=== PATIENT | female | born 1940 | race Caucasian/White ===

== ENCOUNTER 2018-03-28 20:25 | Emergency (ER) | payer OTHER ==
[~2018-03-28] VITALS: Ht 160 cm; Wt 74.8 kg
[2018-03-28 20:53] VITALS: Ht 160 cm; Wt 74.8 kg
[2018-03-28 20:54] LABS: microscopic required? NO
[2018-03-28 21:03] LABS: UA SPECIFIC GRAVITY <=1.005 (1.005-1.035); urine erythrocyte NEGATIVE (NEGATIVE)
[2018-03-28 21:05] LABS: BASOPHIL % 1.9 % (0-2); PLATELET COUNT 315 x10^3mcL (130-400)
[2018-03-28 21:07] LABS: RED CELL DISTRIBUTION WIDTH 15.8 % (11.5-14.5)
[2018-03-28 21:12] LABS: CALCIUM 8.3 mg/dL (8.5-10.1); CARBON DIOXIDE 25.4 mmol/L (21-32); CHLORIDE SERUM 104 mmol/L (98-107); CREATININE SERUM 2.5 mg/dL (0.6-1.0); GLUCOSE SERUM 95 mg/dL (74-106); POTASSIUM SERUM 4.8 mmol/L (3.5-5.1); SODIUM SERUM 136 mmol/L (136-145)
[2018-03-28 21:16] LABS: ALKALINE PHOSPHATASE 151 U/L (46-116); ALT/SGPT 14 U/L (14-59); AST/SGOT 11 U/L (15-37); BILIRUBIN TOTAL 0.2 mg/dL (0.20-1.00); LIPASE 348 IU/L (73-393); TOTAL PROTEIN, SERUM 6.2 g/dL (6.4-8.2)
[2018-03-29 01:53] VITALS: BP 138/64
== END 2018-03-29 01:54 | disposition home or self-care (01) ==
LOC: ED 20:25
PROVIDERS: Emergency Medicine
DX: N28.9 Disorder of kidney and ureter, unspecified (principal); R25.2 Cramp and spasm; F03.90 Unspecified dementia, unspecified severity, without behavioral disturbance, psychotic disturbance, mood disturbance, and anxiety
CPT/HCPCS: 36415; 83880; Q0092

== ENCOUNTER → 2018-07-26 | Outpatient (CLI) | payer OTHER ==
[2018-07-26 15:38] LABS: BASOPHIL % 0.1 % (0-2); PLATELET COUNT 297 x10^3mcL (130-400); RED CELL DISTRIBUTION WIDTH 15.7 % (11.5-14.5)
[2018-07-26 15:42] LABS: ALBUMIN 3.5 g/dL (3.4-5.0); ALKALINE PHOSPHATASE 133 U/L (46-116); ALT/SGPT 15 U/L (14-59); AST/SGOT 14 U/L (15-37); BILIRUBIN TOTAL 0.2 mg/dL (0.20-1.00); CARBON DIOXIDE 24.8 mmol/L (21-32); CHLORIDE SERUM 110 mmol/L (98-107); CREATININE SERUM 2.1 mg/dL (0.6-1.0); GLUCOSE SERUM 105 mg/dL (74-106); MAGNESIUM 2.1 mg/dL (1.8-2.4); PHOSPHOROUS 3.9 mg/dL (2.5-4.9); POTASSIUM SERUM 4.4 mmol/L (3.5-5.1); SODIUM SERUM 143 mmol/L (136-145)
== END | disposition home or self-care (01) ==
LOC: LB 14:54
PROVIDERS: Internal Medicine Nephrology
DX: I12.9 Hypertensive chronic kidney disease with stage 1 through stage 4 chronic kidney disease, or unspecified chronic kidney disease (principal); E66.9 Obesity, unspecified

== ENCOUNTER → 2018-11-15 | Outpatient (CLI) | payer OTHER ==
[2018-11-15 17:04] LABS: UA SPECIFIC GRAVITY 1.025 (1.005-1.035); microscopic required? YES; urine erythrocyte NEGATIVE (NEGATIVE)
[2018-11-15 17:10] LABS: ALBUMIN 3.5 g/dL (3.4-5.0); ALKALINE PHOSPHATASE 137 U/L (46-116); ALT/SGPT 13 U/L (14-59); AST/SGOT 15 U/L (15-37); BILIRUBIN TOTAL 0.28 mg/dL (0.20-1.00); CALCIUM 8.4 mg/dL (8.5-10.1); CARBON DIOXIDE 22.3 mmol/L (21-32); CHLORIDE SERUM 105 mmol/L (98-107); CREATININE SERUM 2.5 mg/dL (0.6-1.0); GLUCOSE SERUM 88 mg/dL (74-106); POTASSIUM SERUM 4.1 mmol/L (3.5-5.1); SODIUM SERUM 137 mmol/L (136-145); TOTAL PROTEIN, SERUM 7.3 g/dL (6.4-8.2)
[2018-11-15 17:16] LABS: BASOPHIL % 0.2 % (0-2); PLATELET COUNT 290 x10^3mcL (130-400); RED CELL DISTRIBUTION WIDTH 13.6 % (11.5-14.5)
== END | disposition home or self-care (01) ==
LOC: LB 16:14
DX: N18.4 Chronic kidney disease, stage 4 (severe) (principal); I10 Essential (primary) hypertension; Z98.84 Bariatric surgery status

== ENCOUNTER 2018-12-12 14:09 | Emergency (ER) | payer OTHER ==
[~2018-12-12] VITALS: Ht 147.3 cm; Wt 79.4 kg
[2018-12-12 14:13] VITALS: Ht 147.3 cm; Wt 79.4 kg
[2018-12-12 15:19] LABS: BASOPHIL % 1.6 % (0-2); PLATELET COUNT 293 x10^3mcL (130-400); RED CELL DISTRIBUTION WIDTH 14.1 % (11.5-14.5)
[2018-12-12 15:50] LABS: CALCIUM 8.8 mg/dL (8.5-10.1); CARBON DIOXIDE 27.1 mmol/L (21-32); CHLORIDE SERUM 102 mmol/L (98-107); CREATININE SERUM 2.5 mg/dL (0.6-1.0); GLUCOSE SERUM 106 mg/dL (74-106); POTASSIUM SERUM 4.7 mmol/L (3.5-5.1); SODIUM SERUM 140 mmol/L (136-145)
[2018-12-12 15:55] LABS: ALBUMIN 3.6 g/dL (3.4-5.0); ALKALINE PHOSPHATASE 137 U/L (46-116); ALT/SGPT 13 U/L (14-59); AST/SGOT 12 U/L (15-37); BILIRUBIN TOTAL 0.33 mg/dL (0.20-1.00); TOTAL PROTEIN, SERUM 7.3 g/dL (6.4-8.2)
[2018-12-12 16:01] LABS: microscopic required? NO
[2018-12-12 16:19] LABS: urine erythrocyte NEGATIVE (NEGATIVE)
[2018-12-12 19:14] VITALS: BP 154/71
== END 2018-12-12 19:14 | disposition home or self-care (01) ==
LOC: ED 14:09
PROVIDERS: Emergency Medicine
DX: R53.1 Weakness (principal); E86.0 Dehydration; R51 Headache; Z88.0 Allergy status to penicillin
CPT/HCPCS: 87804; J2765; J7030; Q0092

== ENCOUNTER 2019-01-26 09:17 | Inpatient (IN) | payer OTHER ==
[~2019-01-26] VITALS: Ht 157.5 cm; Wt 71.2 kg
[2019-01-26 10:16] LABS: BASOPHIL % 1.3 % (0-2); PLATELET COUNT 281 x10^3mcL (130-400)
[2019-01-26 10:21] LABS: RED CELL DISTRIBUTION WIDTH 16.4 % (11.5-14.5)
[2019-01-26 10:37] LABS: CARBON DIOXIDE 24.6 mmol/L (21-32); CHLORIDE SERUM 102 mmol/L (98-107); CREATININE SERUM 2.4 mg/dL (0.6-1.0); GLUCOSE SERUM 123 mg/dL (74-106); POTASSIUM SERUM 4.5 mmol/L (3.5-5.1); SODIUM SERUM 137 mmol/L (136-145)
[2019-01-26 10:42] LABS: ALBUMIN 3.9 g/dL (3.4-5.0); ALKALINE PHOSPHATASE 155 U/L (46-116); ALT/SGPT 16 U/L (14-59); AST/SGOT 12 U/L (15-37); BILIRUBIN TOTAL 0.46 mg/dL (0.20-1.00); TOTAL PROTEIN, SERUM 7.3 g/dL (6.4-8.2)
[2019-01-26] MEDS ORDERED: CITALOPRAM HYDR20 M1 PO (11:26)
[2019-01-26] MEDS ORDERED: NOR10 PO (11:26)
[2019-01-26] MEDS ORDERED: LANSOPRAZOLE30 M2 PO (11:27)
[2019-01-26] MEDS ORDERED: FLUOCINOLONE ACETONIDE 0.01% TOP (11:27)
[2019-01-26] MEDS ORDERED: HYDRALAZINE HCL25 MG PO (11:27)
[2019-01-26] MEDS ORDERED: FERROUS SULFAT325 M2 PO (11:27)
[2019-01-26] MEDS ORDERED: ZESTRIL20 MG PO (11:28)
[2019-01-26] MEDS ORDERED: METOLAZONE5 M1 PO (11:29)
[2019-01-26] MEDS ORDERED: SEROQUEL XR50 MG PO (11:30)
[2019-01-26] MEDS ORDERED: MIRALAX17 GM PO (11:30)
[2019-01-26 12:22] LABS: MAGNESIUM 2.8 mg/dL (1.8-2.4); PHOSPHOROUS 4.5 mg/dL (2.5-4.9)
[2019-01-26 12:57] VITALS: BP 174/67
[2019-01-26 13:24] LABS: microscopic required? NO
[2019-01-26 13:35] LABS: AMPHETAMINE QUAL UR NONE DETECTED (See below)
[2019-01-26 13:50] LABS: urine erythrocyte NEGATIVE (NEGATIVE)
[2019-01-26] MEDS ORDERED: ATIVAN1 MG PO (13:52)
[2019-01-26] MEDS ORDERED: IMITREX50 MG PO (13:53)
[2019-01-26 18:06] VITALS: BP 123/57
[2019-01-26 19:43] VITALS: BP 106/47
[2019-01-27 05:56] VITALS: BP 133/53
[2019-01-27 06:33] LABS: CALCIUM 7.9 mg/dL (8.5-10.1); CARBON DIOXIDE 23.2 mmol/L (21-32); CHLORIDE SERUM 105 mmol/L (98-107); GLUCOSE SERUM 112 mg/dL (74-106); MAGNESIUM 2.6 mg/dL (1.8-2.4); PHOSPHOROUS 5.9 mg/dL (2.5-4.9); POTASSIUM SERUM 4.9 mmol/L (3.5-5.1); SODIUM SERUM 138 mmol/L (136-145)
[2019-01-27 06:45] LABS: BASOPHIL % 0.1 % (0-2); PLATELET COUNT 219 x10^3mcL (130-400)
[2019-01-27 07:57] LABS: RED CELL DISTRIBUTION WIDTH 16.7 % (11.5-14.5)
[2019-01-27 08:36] VITALS: BP 136/46
[2019-01-27 08:50] VITALS: BP 130/87
[2019-01-27 14:07] VITALS: BP 112/40
[2019-01-27 15:01] LABS: microscopic required? NO
[2019-01-27 15:19] LABS: urine erythrocyte NEGATIVE (NEGATIVE)
[2019-01-27 17:18] VITALS: Ht 157.5 cm; Wt 71.2 kg
[2019-01-27 17:51] VITALS: BP 128/52
[2019-01-27 20:03] VITALS: BP 112/51
[2019-01-28 05:55] VITALS: BP 125/50
[2019-01-28 06:44] LABS: BASOPHIL % 0.7 % (0-2); PLATELET COUNT 215 x10^3mcL (130-400)
[2019-01-28 06:55] LABS: CALCIUM 7.8 mg/dL (8.5-10.1); CARBON DIOXIDE 22.5 mmol/L (21-32); CHLORIDE SERUM 107 mmol/L (98-107); CREATININE SERUM 2.6 mg/dL (0.6-1.0); GLUCOSE SERUM 94 mg/dL (74-106); MAGNESIUM 2.8 mg/dL (1.8-2.4); PHOSPHOROUS 4.8 mg/dL (2.5-4.9); POTASSIUM SERUM 5.1 mmol/L (3.5-5.1); SODIUM SERUM 138 mmol/L (136-145)
[2019-01-28 07:06] LABS: RED CELL DISTRIBUTION WIDTH 16.6 % (11.5-14.5)
[2019-01-28 09:43] VITALS: BP 138/63
[2019-01-28 21:09] VITALS: BP 135/61
[2019-01-29 06:28] VITALS: BP 137/49
[2019-01-29 06:40] LABS: BASOPHIL % 1.2 % (0-2); PLATELET COUNT 208 x10^3mcL (130-400)
[2019-01-29 06:56] LABS: RED CELL DISTRIBUTION WIDTH 16.6 % (11.5-14.5)
[2019-01-29 07:04] LABS: CALCIUM 7.9 mg/dL (8.5-10.1); CARBON DIOXIDE 24.3 mmol/L (21-32); CHLORIDE SERUM 109 mmol/L (98-107); CREATININE SERUM 2.7 mg/dL (0.6-1.0); GLUCOSE SERUM 88 mg/dL (74-106); MAGNESIUM 2.6 mg/dL (1.8-2.4); PHOSPHOROUS 4.9 mg/dL (2.5-4.9); SODIUM SERUM 141 mmol/L (136-145)
[2019-01-29 07:10] LABS: POTASSIUM SERUM 5.6 mmol/L (3.5-5.1)
[2019-01-29 08:00] VITALS: BP 137/51
[2019-01-29 17:00] VITALS: BP 130/53
[2019-01-29 21:06] VITALS: BP 134/64
[2019-01-30 05:15] VITALS: BP 148/66
[2019-01-30 06:41] LABS: BASOPHIL % 1.2 % (0-2); PLATELET COUNT 245 x10^3mcL (130-400)
[2019-01-30 07:08] LABS: CALCIUM 7.9 mg/dL (8.5-10.1); CARBON DIOXIDE 21.5 mmol/L (21-32); CHLORIDE SERUM 105 mmol/L (98-107); CREATININE SERUM 2.5 mg/dL (0.6-1.0); GLUCOSE SERUM 162 mg/dL (74-106); POTASSIUM SERUM 4.5 mmol/L (3.5-5.1); SODIUM SERUM 137 mmol/L (136-145)
[2019-01-30 07:26] LABS: RED CELL DISTRIBUTION WIDTH 16.5 % (11.5-14.5)
[2019-01-30 09:57] VITALS: BP 144/53
[2019-01-30 17:20] VITALS: BP 131/69
[2019-01-30 21:02] VITALS: BP 139/59
[2019-01-31 06:28] VITALS: BP 124/48
[2019-01-31 10:04] VITALS: BP 128/54
[2019-01-31] MEDS ORDERED: TAMSULOSIN HYD0.4 M1 PO (10:10)
== END 2019-01-31 19:29 | DRG 205 ==
LOC: ED 09:17 → MU 11:39 → DU 11:39 → MU 01-28 10:00
PROVIDERS: Emergency Medicine; Family Medicine; ADMIT Internal Medicine
DX: M94.0 Chondrocostal junction syndrome [Tietze] (principal); N17.0 Acute kidney failure with tubular necrosis; N18.4 Chronic kidney disease, stage 4 (severe); I12.9 Hypertensive chronic kidney disease with stage 1 through stage 4 chronic kidney disease, or unspecified chronic kidney disease; R33.9 Retention of urine, unspecified; R73.03 Prediabetes; E83.41 Hypermagnesemia; F32.9 Major depressive disorder, single episode, unspecified; F02.80 Dementia in other diseases classified elsewhere, unspecified severity, without behavioral disturbance, psychotic disturbance, mood disturbance, and anxiety; Z87.891 Personal history of nicotine dependence; Z22.322 Carrier or suspected carrier of Methicillin resistant Staphylococcus aureus
CPT/HCPCS: 83880; 97110-GP; 97116-GP; 97530-GP; J2060; J7030; Q0092

== ENCOUNTER 2019-02-08 17:46 | Inpatient (IN) | payer OTHER ==
[~2019-02-08] VITALS: Ht 157.5 cm; Wt 77.3 kg
[~2019-02-08 17:46] MED LIST: ATIVAN1 MG PO; CITALOPRAM HYDR20 M1 PO; FERROUS SULFAT325 M2 PO; FLUOCINOLONE ACETONIDE 0.01% TOP; HYDRALAZINE HCL25 MG PO; IMITREX50 MG PO; LANSOPRAZOLE30 M2 PO; METOLAZONE5 M1 PO; MIRALAX17 GM PO; NOR10 PO; SEROQUEL XR50 MG PO; TAMSULOSIN HYD0.4 M1 PO; ZESTRIL20 MG PO
--- NOTE | 2019-02-08 18:10 | NUR ---
ED PHYSICIAN AT BEDSIDE FOR PATIENT EVALUATION. MEDICAL SCREENING EXAMINATION COMPLETED BY ED PHYSICIAN DR. SOFIA.
[2019-02-08 18:42] LABS: UA SPECIFIC GRAVITY 1.015 (1.005-1.035); microscopic required? YES
[2019-02-08 18:43] LABS: urine erythrocyte 1+ (NEGATIVE)
[2019-02-08 19:08] LABS: PLATELET COUNT 288 x10^3mcL (130-400)
--- NOTE | 2019-02-08 19:09 | NUR ---
REPORT HAND-OFF TO NIGHT RN KATIA.
[2019-02-08 19:13] LABS: RED CELL DISTRIBUTION WIDTH 16.6 % (11.5-14.5)
--- NOTE | 2019-02-08 19:15 | NUR ---
PT TAKEN TO CT VIA WHEELCHAIR
--- NOTE | 2019-02-08 19:16 | NUR ---
SUBHASH RECEIVED FROM BELKIS GARCIA
--- NOTE | 2019-02-08 19:30 | NUR ---
LAB CALLED TO UPDATE THAT THEY HAVE TO RERUN HER BLOOD AND IT WILL TAKE ANOTHER 30 MIN TO 1 HOUR TO GET THE RESULTS
[2019-02-08 19:41] LABS: CALCIUM 8.1 mg/dL (8.5-10.1); CHLORIDE SERUM 103 mmol/L (98-107); CREATININE SERUM 2.8 mg/dL (0.6-1.0); GLUCOSE SERUM 89 mg/dL (74-106); POTASSIUM SERUM 4.9 mmol/L (3.5-5.1); SODIUM SERUM 139 mmol/L (136-145)
--- NOTE | 2019-02-08 19:41 | NUR ---
PT RETURNED FROM CT
--- NOTE | 2019-02-08 19:41 | NUR ---
MADE AWARE PT IN PAIN. NO NEW ORDERS AT THIS TIME.
[2019-02-08 19:45] LABS: ALBUMIN 3.6 g/dL (3.4-5.0); ALKALINE PHOSPHATASE 174 U/L (46-116); ALT/SGPT 18 U/L (14-59); AST/SGOT 16 U/L (15-37); BILIRUBIN TOTAL 0.3 mg/dL (0.20-1.00); LIPASE 301 IU/L (73-393); TOTAL PROTEIN, SERUM 7.4 g/dL (6.4-8.2)
[2019-02-08 19:51] LABS: BAND NEUTROPHIL 3 % (0-10); BASOPHIL 0 % (0-2); MONOCYTE 4 % (0-7); SEGMENTED NEUTROPHILS 88 % (37-75)
[2019-02-08 19:53] LABS: PLATELET MORPHOLOGY PLATELETS NORMAL; rbc morphology (normal/abnorm) NORMAL (NORMAL)
--- NOTE | 2019-02-08 20:05 | NUR ---
INTERNAL MEDICINE MDS AT BEDSIDE FOR EXAM
[2019-02-08 20:40] LABS: MAGNESIUM 2.6 mg/dL (1.8-2.4); PHOSPHOROUS 4.5 mg/dL (2.5-4.9)
[2019-02-08 20:45] LABS: CHOLESTEROL/HDL RATIO 2.7
[2019-02-08 20:46] LABS: T3 TOTAL 0.96 ng/mL
[2019-02-08 20:48] LABS: FREE T4 0.85 ng/dL (0.76-1.46); FREE THYROXINE INDEX 1.9 ug/dL (1.4-4.5); T4(THYROXINE) 6.2 ug/dL (4.7-13.3)
--- NOTE | 2019-02-08 20:55 | NUR ---
REPORT GIVEN TO SHERRI GARCIA
[2019-02-08 21:37] VITALS: BP 139/59
--- NOTE | 2019-02-08 21:41 | NUR ---
RECEIVED PT FROM ED VIA MACARIO. ORIENTED PT TO ROOM AND SURROUNDINGS. IV NOTED TO LAC PATENT AND INTACT. TELE 8 PLACED ON PT READING NSR. INSTRUCTED PT ON THE USE OF CALL LIGHT FOR ASSISTANCE. ENDORSED PT TO PRIMARY NURSE SHERRI
--- NOTE | 2019-02-09 00:38 | NUR ---
PT RECEIVED MORPHINE FOR GENERALIZED PAIN 06/25.
--- NOTE | 2019-02-09 01:14 | NUR ---
MORPHINE PULLED ON INCORRECT PT AT [facility]. MORHPHINE WASTED WITH ALICIA GIBBS. MORPHINE PULLED FOR CORRECT PATIENT.
[2019-02-09 06:17] VITALS: BP 142/59
--- NOTE | 2019-02-09 06:40 | NUR ---
PT SLEPT IN INTERVALS THROUGHOUT THE NIGHT. AGITATED AND ANXIOUS AT TIMES. DENIES CHEST PAIN OR SHORTNESS OF BREATH. WILL ENDORSE TO DAY SHIFT RN.
[2019-02-09 07:05] LABS: PLATELET COUNT 285 x10^3mcL (130-400)
--- NOTE | 2019-02-09 07:10 | NUR ---
RECEIVED REPORT FROM ALMITA GARCIA. PT SITTING AT EDGE OF BED C/O NAUSEA. IV TO LAC IS PATENT AND INFUSING NS @ 50 ML/HR. NO REDNESS OR PAIN. TELE # [address] PT DENIES CHEST PAIN. PT ON ROOM AIR. NO C/O SOB AND NO DISTRESS NOTED. ALL QUESTIONS AND CONCERNS ADDRESSED.
[2019-02-09 07:59] LABS: CALCIUM 8.6 mg/dL (8.5-10.1); CARBON DIOXIDE 18.2 mmol/L (21-32); CHLORIDE SERUM 101 mmol/L (98-107); CREATININE SERUM 2.9 mg/dL (0.6-1.0); GLUCOSE SERUM 124 mg/dL (74-106); POTASSIUM SERUM 4.8 mmol/L (3.5-5.1); SODIUM SERUM 136 mmol/L (136-145)
[2019-02-09 09:54] VITALS: BP 142/61
[2019-02-09 12:55] VITALS: BP 157/68
[2019-02-09 14:58] LABS: ATYPICAL LYMPH 1 %; BAND NEUTROPHIL 3 % (0-10); BASOPHIL 0 % (0-2); SEGMENTED NEUTROPHILS 91 % (37-75)
[2019-02-09 14:59] LABS: PLATELET MORPHOLOGY PLATELETS NORMAL; rbc morphology (normal/abnorm) ABNORMAL (NORMAL)
--- NOTE | 2019-02-09 15:15 | NUR ---
IN TO SEE PATIENT AND ASSESS NEEDS. PT ASLEEP. NO NEEDS IDENTIFIED.
[2019-02-09 17:12] VITALS: BP 145/70
--- NOTE | 2019-02-09 19:50 | NUR ---
REPORT GIVEN TO FELISA GARCIA. PT RESTING COMFORTABLY IN BED TALKING ON THE PHONE. ALL NEEDS MET. ALL QUESTIONS AND CONCERNS ADDRESSED. ALL CARES ENDORSED.
--- NOTE | 2019-02-09 20:03 | NUR ---
RECEIVED PATIENT IN BED AWAKE, ALERT WITH NO SIGN OF ACUTE DISTRESS, BREATHING EASY AND NONLABOR SATTING AT 98% RA. TELE#8 NSR ON MONITOR, DENIES CHESTPAIN. BREATHING EASYA ND NONLABOR SATTING AT 95% RA. IV TO RAC INTACT AND INFUSING WELL. WILL CONTINUE TO MONITOR.
[2019-02-09 20:44] VITALS: BP 138/64
--- NOTE | 2019-02-10 02:10 | NUR ---
APPEARS SLEEPING THIS TIME , BREATHING EASY AND NONLABOR. WILL CONTINUE TO MONITOR.
--- NOTE | 2019-02-10 02:39 | NUR ---
DR ORTIZ MADE AWARE OF BLOOD CULTURE RESULT. GRAM NEGATIVE BACILLI.
--- NOTE | 2019-02-10 05:09 | NUR ---
SLEPT FAIRLY, CHECKED AT INTERVALS FOR EEDS AND SAFDETY. ALL NEEDS ATTENDED.
[2019-02-10 05:58] VITALS: BP 148/58
[2019-02-10 06:12] LABS: BASOPHIL % 0.2 % (0-2); PLATELET COUNT 217 x10^3mcL (130-400)
[2019-02-10 06:13] LABS: RED CELL DISTRIBUTION WIDTH 16.1 % (11.5-14.5)
[2019-02-10 06:46] LABS: CALCIUM 7.9 mg/dL (8.5-10.1); CARBON DIOXIDE 22.5 mmol/L (21-32); CHLORIDE SERUM 104 mmol/L (98-107); GLUCOSE SERUM 105 mg/dL (74-106); MAGNESIUM 2.5 mg/dL (1.8-2.4); PHOSPHOROUS 4.9 mg/dL (2.5-4.9); POTASSIUM SERUM 5.3 mmol/L (3.5-5.1); SODIUM SERUM 136 mmol/L (136-145)
--- NOTE | 2019-02-10 07:10 | NUR ---
RECEIVED BEDSIDE REPORT FROM EVALUATION ANALYST NURSE AT THIS TIME. PATIENT RESTING COMFORTABLY IN BED. NO APPARENT DISTRESS OR DISCOMFORT NOTED. BREATHING EVEN AND UNLABORED. NO RESPIRATORY DISTRESS NOTED. NO INDICATION OF CHEST PAIN AT THIS TIME. IV PATENT AND INTACT. ALL QUESTIONS AND CONCERNS ADDRESSED. ALL NEEDS ATTENDED TO. WILL CONTINUE TO MONITOR
--- NOTE | 2019-02-10 09:17 | NUR ---
MORNING MEDICATIONS ADMINISTERED. PATIENT TOLERATED WELL. NO ADVERSE EFFECTS NOTED. ALL NEEDS ATTENDED TO
[2019-02-10 09:45] VITALS: BP 100/55
--- NOTE | 2019-02-10 10:01 | NUR ---
REPORTED TO DR GIRARD PATIENT POTASSIUM 5.3 AND MAG 2.5. WILL PROCEED ORDERED. WILL CONTINUE TO MONITOR
[2019-02-10 12:32] VITALS: BP 131/55
--- NOTE | 2019-02-10 13:00 | NUR ---
PATIENT SITTING UP IN BED EATING LUNCH AT THIS TIME. PATIENT TOLERATING DIET WELL. NO APPARENT DISTRESS NOTED. ALL NEEDS ATTENDED TO. WILL CONTINUE TO MONITOR
--- NOTE | 2019-02-10 14:02 | NUR ---
PATIENT C/O NECK PAIN AND GENERALIZED BODY PAIN AT THIS TIME. PATIENT MEDICATED WITH PRN MORPHINE IVP. PATIENT TOLERATED WELL. NO ADVERSE EFFECTS NOTED. ALL NEEDS ATTENDED TO. WILL CONTINUE TO MONITOR
--- NOTE | 2019-02-10 16:11 | NUR ---
PATIENT C/O RIGHT FOREARM PAIN AT IV SITE. STATES BURNING WHEN INFUSING. IV TO RFA REMOVED WITH CATH INTACT. PATIENT REFUSING NEW ACCESS AT THIS TIME. WILL CONTINUE TO MONITOR PATIENT.
--- NOTE | 2019-02-10 16:29 | NUR ---
PATIENT C/O PRESSURE LIKE PAIN TO "BLADDER". MEDICATED WITH NORCO PO (SEE eMAR). ALL NEEDS ATTENDED TO. SAFETY PRECAUTIONS MAINTAINED. PRIMARY NURSE AWARE.
--- NOTE | 2019-02-10 18:20 | NUR ---
UNABLE TO OBTAIN IV ACCESS ON PATIENT. RESOURCE NURSE MARY ANN ATTEMPT X4. RESOURCE NURSE KARLENE ATTEMPT X1. WILL ENDORSE TO LAUNDRETTE OWNER NURSE.
[2019-02-10 18:24] VITALS: BP 119/52
--- NOTE | 2019-02-10 18:47 | NUR ---
PATIENT RESTING COMFORABLY IN BED AT THIS TIME. NO APPARENT DISTRESS OR DISCOMFORT NOTED. NO IV ACCESS AT THIS TIME DUE TO MULTIPLE ATTEMPTS AND NO SUCCESS. ALL QUESTIONS AND CONCERNS ADDRESSED. SAFETY PRECAUTIONS MAINTAINED. ALL NEEDS ATTENDED TO. WILL ENDORSE ALL CARE TO DIRECTOR OF PURCHASING NURSE
--- NOTE | 2019-02-10 19:05 | NUR ---
REPORT RECIEVED FROM DAY SHIFT RN. PATIENT WAS SEEN AND IS RESTING COMFORTABLY IN BED. A/OX2 TO PERSON AND PLACE. BREATHING EVEN ON ROOM AIR. NO SOB OR RESP DISTRESS NOTED. NO C/O PAIN. DENIES CHEST PAIN. NO IV ACCESS. DAY SHIFT RN REPORTED THEY ATTEMPTED 5 TIMES WITHOUT SUCCESS BEFORE SHIFT EXCHANGE. DR ROUSE AWARE AND SAID TO GIVE PATIENT A BREAK, AND IF PATIENT'S AWAKE LATER TO TRY AGAIN. IF NOT WILL ATTEMPT IN THE MORNING. HAS URINARY URGENCY. ASSISTED PATIENT TO THE BATHROOM AND BACK TO BED. DENIES PAIN ON URINATION. COMFORT AND SAFETY MEASURES MAINTAINED. BED IS LOCKED AND IN THE LOWEST POSITION. SIDE RAILS UP X2. INSTRUCTED PATIENT TO USE THE CALL LIGHT FOR ASSISTANCE. CALL LIGHT WITHIN REACH. WILL CONTINUE TO MONITOR.
[2019-02-10 21:42] VITALS: BP 134/51
--- NOTE | 2019-02-11 00:11 | NUR ---
PATIENT IN THE RESTROOM. ASSISTED PATIENT BACK TO BED. PATIENT SITTING ON SIDE OF THE BED. GAVE PATIENT PUDDING AND JELLO. NO DISTRESS NOTED. BREATHING EVEN. SAFETY MEASURES MAINTAINED. CALL LIGHT IS WITHIN REACH. WILL CONTINUE TO MONITOR.
--- NOTE | 2019-02-11 00:34 | NUR ---
PT A/O X2, PT IS CONFUSED AND FORGETFUL. ASSISTED PT TO BATHROOM MULTIPLE TIMES WITHOUT INCIDENT. REINFORCED NEED TO USE CALL LIGHT FOR HELP WHEN AMBULATING, PT VERBALIZES UNDERSTANDING BUT FAILS TO USE THE CALL LIGHT. PT REPETITIVELY STATES, "I FEEL LIKE I HAVE A BLADDER INFECTION, I KEEP HAVING TO GO TO THE BATHROOM." EDUCATED PT MULTIPLE TIMES OF HER DX OF UTI WELL S/S, PT STATES, "OH, I DON'T REMEMBER YOU TELLING ME THAT, SO I GUESS I DO HAVE A BLADDER INFECTION." SNACKS GIVEN PER PT'S REQUEST. NO ACUTE DISTRESS NOTED. CALL LIGHT WITHIN REACH. WILL CONT TO MONITOR.
--- NOTE | 2019-02-11 00:44 | NUR ---
ASSISTED PATIENT TO THE BATHROOM AND BACK TO BED. PATIENT AMDE COMFORTABLE IN BED. NO DISTRESS NOTED. BREATHING EVEN. C/O 04/24 GENERALIZED BODY PAIN. PRN NORCO WAS ADMINISTERED PRESCRIBED. WILL CONTINUE TO MONITOR AND REASSESS PAIN LEVEL. CALL LIGHT IS WITHIN REACH.
--- NOTE | 2019-02-11 01:41 | NUR ---
PATIENT ASSISTED TO THE RESTROOM AND BACK TO BED. MADE COMFORTABLE IN BED. C/O OF RESTLESSNESS. PRN ATIVAN PO WAS ADMINISTERED PRESCRIBED. EDUCATED PATIENT THAT DROWSINESS MAY OCCUR. WILL CONTINUE TO MONITOR PATIENT. CALL LIGHT IS WITHIN REACH.
--- NOTE | 2019-02-11 03:36 | NUR ---
PATIENT IS RESTING IN BED COMFORTABLY WITH EYES CLOSED. NO DISTRESS NOTED. BREATHING EVEN. NO IV ACCESS. NO S/S OF PAIN. CALL LIGHT IS WITHIN REACH. WILL CONTINUE TO MONITOR. SAFETY PRECAUTIONS IN PLACE.
[2019-02-11 05:29] VITALS: BP 134/49
[2019-02-11 06:00] LABS: BASOPHIL % 0.3 % (0-2); PLATELET COUNT 218 x10^3mcL (130-400)
[2019-02-11 06:17] LABS: CALCIUM 7.7 mg/dL (8.5-10.1); CARBON DIOXIDE 22.6 mmol/L (21-32); CHLORIDE SERUM 103 mmol/L (98-107); CREATININE SERUM 2.8 mg/dL (0.6-1.0); GLUCOSE SERUM 95 mg/dL (74-106); MAGNESIUM 2.4 mg/dL (1.8-2.4); PHOSPHOROUS 4.6 mg/dL (2.5-4.9); POTASSIUM SERUM 4.6 mmol/L (3.5-5.1); SODIUM SERUM 135 mmol/L (136-145)
--- NOTE | 2019-02-11 06:22 | NUR ---
PATIENT SLEPT IN INTERVALS THROUGHOUT THE NIGHT. NO ACUTE/SIGNIFICANT CHANGES NOTED. BREATHING EVEN ON ROOM AIR. NO DISTRESS NOTED. FREQUENTLY GETS UP/CALLS TO USE TO THE RESTROOM. HAS URINARY URGENCY. PATIENT IS ABLE TO AMBULATE TO THE RESTROOM WITH OUT ASSIST, BUT SOMETIMES CALLS FOR ASSISTANCE. C/O PAIN X1. PRN NORCO ADMINISTERED WITH GOOD RELIEF. NO IV ACCESS AT THIS TIME. ALL NEEDS AND CONCERNS ADDRESSED. ALL SAFETY MEASURES MAINTAINED. WILL ENDORSE CARE TO DAY SHIFT RN.
--- NOTE | 2019-02-11 07:15 | NUR ---
RECEIVED PT FROM LAZARO RN. PT FOUND RESTING IN BED WITH BOTH EYES CLOSED. NO S/S OF ACUTE DISTRESS. NO COMPLAINT OF PAIN. NO SOB ON ROOM AIR. RR EVEN/UNLABORED. NO CHEST PAIN. BED IN LOW POSITION. CALL LIGHT WITHIN REACH. FALL PREC IN PLACE. WILL CONT. TO MONITOR.
[2019-02-11 09:14] VITALS: BP 103/44
[2019-02-11 10:56] VITALS: BP 113/41
--- NOTE | 2019-02-11 12:08 | NUR ---
ASSISTED PT TO BSC, TOLERATED ACTIVITY WELL. NO COMPLAINT OF PAIN. NO SOB ON ROOM AIR. NO N/V. NO SOTO. NO DIZZINESS. AA/OX4. FOLLOWS COMPLEX COMMANDS, RESPONDS TO VERBAL STIMULI. FACE SYMMETRICAL. SPEECH CLEAR. COMPLAINT OF URINARY FREQUENCY/URGENCY. DR. GRACE AWARE. NEW MEDICATION ACKNOWLEDGED AND GIVEN. FALL PREC IN PLACE. INSTRUCTED TO USE CALL LIGHT TO CALL FOR ASSISTANCE BEFORE AMBULATING. VERBALIZED UNDERSTANDING. BED IN LOW POSITION. CALL LIGHT WITHIN REACH. WILL CONT. TO MONITOR.
[2019-02-11 13:37] VITALS: BP 101/56; BP 113/41
--- NOTE | 2019-02-11 14:49 | NUR ---
+MDRO/ESBL URINE, DR. GRACE AWARE. CONTACT PRECAUTIONS IN PLACE. PT LAYING IN BED RESTING WITH BOTH EYES CLOSED. ASSISTED PT TO RESTROOM 4 TIMES IN PAST HOUR WITH SCANT URINE OUTPUT. TOLERATED ACTIVITY WELL. NO COMPLAINT OF PAIN. NO N/V. NO SOB ON ROOM AIR. BED IN LOW POSITION. CALL LIGHT WITHIN REACH. FALL PREC IN PLACE. WILL CONT. T OMONITOR.
--- NOTE | 2019-02-11 15:34 | NUR ---
LATE ENTRY: PT CONFUSED/YELLING AT TIMES. FORGETFUL. INSTRUCTED TO USE CALL LIGHT TO CALL FOR ASSISTANCE PRN AND BEFORE GETTING OOB. VERBALIZED UNDERSTANDING. ASSISTED TO BSC WITH HAND TURNER. TOLERATING ACTIVITY WELL. SCANT URINE OUTPUT NOTED. PERICARE PROVIDED. NO CHEST PAIN. NO SOB ON ROOM AIR. NO CHEST PAIN. BED IN LOW POSITION. CALL LIGHT WITHIN REACH. FALL PREC IN PLACE. WILL CONT. TO MONITOR.
[2019-02-11 17:44] VITALS: BP 127/49
--- NOTE | 2019-02-11 18:38 | NUR ---
PT AMBULATORY TO BSC, TOLERATED ACTIVITY WELL. AA/OX4. CONFUSED/FORGETFUL AT TIMES. PT HAS URINARY FREQUENCY/URGENCY. NO SOB ON ROOM AIR. NO CHEST PAIN. NO N/V. NO SOTO. NO DIZZINESS. CONTACT PREC IN PLACE. BED IN LOW POSITION. CALL LIGHT WITHIN REACH. FALL PRECAUTIONS IN PLACE. WILL ENDORSE TO ONCOMING SHIFT.
--- NOTE | 2019-02-11 19:15 | NUR ---
PT RECEIVED A/O X4, WITH EPISODES OF FORGETFULNESS AND CONFUSION. MED-SURG, DENIES CP/PRESSURE. PULSES PALPABLE, EDEMA TO BLE. BREATHING IS EVEN AND UNLABORED ON RA, DENIES SOB, NO RESP DISTRESS NOTED. ABD SOFT AND ROUND, DENIES N/V. VOIDS FREELY, BRP WITH ASSIST. PT ADMITS TO URINARY URGENCY AND FREQUENCY. CONTACT PRECAUTIONS IN PLACE FOR E.COLI IN BLOOD AND URINE. GENERALIZED WEAKNESS, AMBULATORY WITH ASSIST. ECCHYMOSIS TO BUE. PT DENIES ANY PAIN AT THIS TIME. NO IV ACCESS AVAILABLE AT THIS TIME. PER AM NURSE, AFTER MULTIPLE, UNSUCCESSFUL ATTEMPTS, PT REFUSING IV ACCESS. BED IN LOWEST SETTING, SIDE RAILS UP X2, CALL LIGHT WITHIN REACH. WILL CONT TO MONITOR.
[2019-02-12 06:09] VITALS: BP 146/65
--- NOTE | 2019-02-12 06:15 | NUR ---
PT WAS AWAKE DURING MOST OF THE NIGHT. PT REMAINS CONFUSED/FORGETFUL AND CONTINUES TO SAY, "I DON'T KNOW WHY I HAVE TO KEEP GOING TO THE BATHROOM. MAYBE I HAVE A BLADDER INFECTION?" PT DENIES HAVING ANY PAIN AT THIS TIME. NO ACUTE CHANGES ENCOUNTERED DURING SHIFT. NEW IV INSERTED TO RW, 22g, PT TOLERATED WELL. ALL NEEDS MET. CALL LIGHT WITHIN REACH. WILL ENDORSE CARE TO AM NURSE.
[2019-02-12 07:07] LABS: BASOPHIL % 0.7 % (0-2); PLATELET COUNT 233 x10^3mcL (130-400)
[2019-02-12 07:12] LABS: RED CELL DISTRIBUTION WIDTH 15.7 % (11.5-14.5)
--- NOTE | 2019-02-12 07:23 | NUR ---
PT IN NO ACUTE DISTRESS. CONTINUITY OF CARE ENDORSED TO KASSIE GARCIA. ALL QUESTIONS AND CONCERNS ADDRESSED.
--- NOTE | 2019-02-12 07:55 | NUR ---
AWAKE,ALERT VERY ANXIOUS AGITATED,CONFUSED AND FORGETFULL,RE- ORIENTED TO ROOM AND SURROUNDINGS,CALL LIGHT W/ IN REACH. ABLE TO AMBULATE IN THE BATHROOM W/ ASSIST. SANTI. WELL FRUEQUENCY OF URINATION DENIES ANY PAIN DURING URINAT NO ACUTE DISTRESS NOTED. CALL LIGHT W/ IN REACH. WILL CONT. PLAN OF CARE.
[2019-02-12 07:56] LABS: CALCIUM 7.5 mg/dL (8.5-10.1); CARBON DIOXIDE 19.1 mmol/L (21-32); CHLORIDE SERUM 102 mmol/L (98-107); CREATININE SERUM 2.6 mg/dL (0.6-1.0); GLUCOSE SERUM 96 mg/dL (74-106); POTASSIUM SERUM 4.3 mmol/L (3.5-5.1); SODIUM SERUM 133 mmol/L (136-145)
[2019-02-12 08:10] VITALS: BP 144/56
--- NOTE | 2019-02-12 09:00 | NUR ---
PT. C/O PAIN IN EPIGASTRIC AREA MEDICATED FOR PAIN NORCO ORDERED BLAINE TEACHER RESOURCE NOTIFIED AND MADE AWARE.
[2019-02-12 12:00] VITALS: BP 140/59
[2019-02-12 13:07] VITALS: Ht 157.5 cm; Wt 77.3 kg
--- NOTE | 2019-02-12 15:40 | NUR ---
PT C/O PAIN IN LOWER ABD. MEDICATED W/ NORCO ORDERED FOR PAIN.
--- NOTE | 2019-02-12 16:28 | NUR ---
PT. YELLING AND SHOUTING GET OUT IN HER ROOM AMBULATED IN RAINES WAY VERY AGITATED ,PUT PT. BACK TO BED, AND ATIVAN GIVEN ORDERED,MADE COMFORTABLE IN BED. CALL LIGHT W/ IN REACH.WILL CONT. TO MONITOR.
[2019-02-12 16:29] VITALS: BP 143/62
--- NOTE | 2019-02-12 18:47 | NUR ---
PT. QUITE AND SLEEPING AT THIS TIME.
--- NOTE | 2019-02-12 19:13 | NUR ---
PLACED CALL LIGHT WITHIN REACH, INSTRUCTED TO CALL FOR ANY ASSISTANCE NEEDED/VERBALIZED UNDERSTANDING.
--- NOTE | 2019-02-12 19:13 | NUR ---
RECEIVED AWAKE IN BED, APAPRENTLY VERY APPREHENSIVE, CONFUSED AND VERBALLY ABUSIVE TO STAFFS. SKIN WARM AND DRY TO TOUCH WITH ECCHYMOSIS AT BUE WITH ABRASION TO RIGHT ARM. STILL WITH INTERMITTENT URGENCY/FREQUENT URINATION,
--- NOTE | 2019-02-12 20:00 | NUR ---
ASSISTED TO THE RESTROOM, PUT BACK TO BED, KEPT CLEAN AND DRY. SERVED WITH PUDDING REQUESTED. ABLE TO TOLERATE ORAL FLUIDS. NO S/S OF ASPIRATION NOTED.
--- NOTE | 2019-02-12 20:22 | NUR ---
D/O WPIGASTRIC PAIN/ABDOMINAL PAIN, ON SCALE 4/10, NORCO ITAB GIVE PRN MEDICATION. CALL LIGHT WITHIN REACH.
--- NOTE | 2019-02-12 20:45 | NUR ---
PT VERY APPREHENSIVE, CURSING THE STAFFS, THROWING PILLPS IN THE FLOOR, THROWING THE GARBAGE ON THE HALLWAY, ENCORAGED PT TO VERBALIZE FEELINGS NUT NO AVAIL. KEEPS ON GOUNG BACK AND FORT TO RESTROOM AND TO THE BED, OFFERED BEDSIDE COMMODE FOR SAFETY. WILL CONTINUE TO MONITOR,
[2019-02-12 20:57] VITALS: BP 141/58
--- NOTE | 2019-02-12 21:50 | NUR ---
PT GOT OUT OF BED AND AMBULATED ALONG THE HALLWAY , WITHOUT CALLING ANY ASSISTANCE. CALL LIGHT WITHIN REACH. PT HAS UNSTEADY GAIT, LILIA RISK FOR FALLS. INSTRUCTED TO STAY IN BED, PT IS ON CONTACT ISOLATION FOR E-COLI BLOOD/URINE, BUT NO AVAI. [T VERY UNCOOOERATIVE WITH TREATMENT PLAN OF CARE. CONTINUE TO DO FREQUENT VISUAL CHECK, BED IN LOWEST POSITION.
--- NOTE | 2019-02-12 22:50 | NUR ---
PT VERY RESTLESS/ANXIOUS M/B HITTING STAFFS, ATIVAN 1MG PO PRN MEDICATION, NOT EFFECTIVE. BED IN LOWEST POSITION.
--- NOTE | 2019-02-13 00:44 | NUR ---
C/O SEVERE ABDOMIANL PAIN, MORPHINE 2MG IVP , REPOSITIONED IN BED. ORAL FLUIDS WELL TOLERATED.
--- NOTE | 2019-02-13 02:15 | NUR ---
PT BECAME MORE APPREHENSIVE/ANXIOUS CURSING/HITTING STAFFS. DR SUERO MADE AWARE WITH NEW ORDER GIVEN AND CARRIED OUT. ATIVAN 0.5MG IVP GIVEN ORDERED.
--- NOTE | 2019-02-13 03:00 | NUR ---
EYES CLOSED, NO FACIAL GRIMACING NOTED. APPARENTLY ASLEEP SOUNDLY. RESPIRATION EVEN AND UNLABORED. NO S/S OF ACUTE DISTRESS.
--- NOTE | 2019-02-13 05:22 | NUR ---
AWAKE AT THIS TIME, ASSISTED TO BATHROOM AND PUT BACK TO BED. REPOSITONED WITH MAXIMUM ASSIST. CALL LIGHT WITHIN REACH, ALL NEEDS ATTENDED,
[2019-02-13 05:49] VITALS: BP 149/57
[2019-02-13 06:25] LABS: BASOPHIL % 0.7 % (0-2); PLATELET COUNT 269 x10^3mcL (130-400)
[2019-02-13 06:57] LABS: CALCIUM 7.8 mg/dL (8.5-10.1); CARBON DIOXIDE 24.2 mmol/L (21-32); CHLORIDE SERUM 105 mmol/L (98-107); CREATININE SERUM 2.8 mg/dL (0.6-1.0); GLUCOSE SERUM 103 mg/dL (74-106); POTASSIUM SERUM 4.3 mmol/L (3.5-5.1); SODIUM SERUM 137 mmol/L (136-145)
--- NOTE | 2019-02-13 07:10 | NUR ---
RECEIVED PT IN BED. SLEEPING THIS TIME. ASSESSED AND DOCUMENTED. DENIES ANY PAIN THIS TIME. SAFTEY PRECAUTIONS ARE IN PLACE. WILL MONITOR.
[2019-02-13 07:26] LABS: RED CELL DISTRIBUTION WIDTH 15.9 % (11.5-14.5)
[2019-02-13 10:13] VITALS: BP 128/77
--- NOTE | 2019-02-13 12:00 | NUR ---
PT IS ASKING FOR HELP. ASKED PT WAHT SHE NEED HELP WITH BUT PT SAID SHE DOESNOT KNOW JUST HELP ME. GAVE COMFORTABLE POSITION. STABLE.
--- NOTE | 2019-02-13 16:15 | NUR ---
PT RESTING IN BED COMFORTABLY. DENIES ANY PAIN, SLEEPING THIS TIME.
[2019-02-13 18:02] VITALS: BP 125/55
--- NOTE | 2019-02-13 19:00 | NUR ---
PT RESTING IN BED COMFORTABLY. DENIES PAIN THIS TIME. GAVE REPORT TO BALLROOM DANCE INSTRUCTOR NURSE.
--- NOTE | 2019-02-13 19:30 | NUR ---
RECIEVED PATIENT AT START OF SHIFT AWAKE AND ALERT, UP AND OUT OF BED USING THE RESTROOM. PATIENT AMBULATORY WITH WALKER. PATIENT RETURNED TO BED. NO SOB ON RA, LUNGS CTAB. PATIENT REPORTS 6/10 BACK PAIN AND ANXIETY. WILL MEDICATE PER EMAR. IV TO RH IS SALINE LOCKED. BED LOCKED AND IN LOWEST POSITION. CALL LIGHT WITHIN REACH. WILL CONTINUE TO MONITOR.
--- NOTE | 2019-02-13 21:18 | NUR ---
PATIENT GIVEN ATIVAN AND NORCO PER EMAR DUE TO REPORT OF ANXIETY AND 6/10 BACK PAIN.
[2019-02-13 22:03] VITALS: BP 147/59
--- NOTE | 2019-02-14 03:00 | NUR ---
PATIENT IS AWAKE AND REQUESTING ICE WATER. PATIENT PUT BACK INTO BED WITH FRESH ICE WATER. CALL LIGHT WITHIN REACH. BED LOCKED AND IN LOWEST POSITION. WILL CONTINUE TO MONITOR.
[2019-02-14 05:59] VITALS: BP 125/52
--- NOTE | 2019-02-14 06:30 | NUR ---
NO FURTHER SIGNIFICANT EVENTS THIS SHIFT. PATIENT STILL HAS URINARY FREQUENCY AND BURNING. IV SALINE LOCKED AND PETENT. CALL LIGHT WITHIN REACH. WILL ENDORSE CARE TO MORNING NURSE.
--- NOTE | 2019-02-14 07:20 | NUR ---
RECEIVED PT. IN BED A/A/O X3. PT. APPEARS FORGETFUL. NO SOB, NO N/V NOTED. PT. DENIES ANY PAIN AT THE PRESENT TIME. NOTICED PT. YELLING/SCREAMING IN BED OCCASIONALLY. IV SITE NOTED TO R WRIST. PT. IS ON CONTACT ISOLATION FOR MDRO E. COLI IN BLOOD. SCD TO BLE MAINTAINED. BED IN LOW POS., CALL LIGHT WITHIN REACH. SIDE RAILS UP X3.
--- NOTE | 2019-02-14 07:23 | NUR ---
PHYSICAL THERAPY DAILY NOTES CO-SIGN All documentation done by the Press Breaker for 02/14/19 has been reviewed. I agree with the documentation. Reviewed/Co-Signed by: Hawa Leyva PT Documentation Done by:ASHLEY HALL [facility] FOR 02/13/19
[2019-02-14 09:15] VITALS: BP 128/44
[2019-02-14] MEDS ORDERED: LEVAQUIN750 MG PO (09:54)
[2019-02-14] MEDS ORDERED: FLO4 PO (09:54)
--- NOTE | 2019-02-14 12:10 | NUR ---
PT. APPEARS RESTLESS AND AGITATED. ATIVAN 1MG PO GIVEN.
--- NOTE | 2019-02-14 14:00 | NUR ---
PT RESTING COMFORTABLY IN BED. DENIES ANY PAIN OR DISCOMFORT. EDUCATED TO CALL FOR ASSISTANCE AND VERBALIZES UNDERSTANDING. ALL SAFETY PRECAUTIONS IN PLACE. CALL LIGHT WITHIN REACH. WILL CONTINUE TO MONITOR.
--- NOTE | 2019-02-14 16:00 | NUR ---
PT STILL RESTING IN BED WITH NO S/S OF PAIN OR DISTRESS. VERBALIZED UNDERSTANDING AGAIN ABOUT SAFETY PRECAUTIONS. CALL LIGHT WITHIN REACH. WILL MONITOR
[2019-02-14 17:01] VITALS: BP 118/42
--- NOTE | 2019-02-14 17:53 | NUR ---
NEW IV SITE RESTARTED AT R WRIST WITH GAUGE #22 DUE TO ACCIDENTAL DISLODGEMENT OF OLD IV H/L.
--- NOTE | 2019-02-14 18:46 | NUR ---
INFORMED DR. SUERO THAT DISCHARGE TO SNF IS STILL PENDING AT THIS TIME DUE TO BED BEING UNAVAILABLE. NO FURTHER ORDER RECEIVED AT THIS TIME.
--- NOTE | 2019-02-14 19:50 | NUR ---
RECEIVED REPORT FROM DAY SHIFT RN. PT RESTING IN BED. AA&O TO PERSON, PLACE. REORIENTED TO TIME. NO SOB ON ROOM AIR. NO C/O PAIN AT THIS TIME. IV TO RIGHT WRIST, INTACT. SAFETY MEASURES IN PLACE. BED IN LOWEST POSITION. SIDE RAILS UP X2. DEMONSTRATED HOW TO USE THE CALL LIGHT FOR ASSISTANCE. CALL LIGHT WITHIN REACH. WALKER AT BEDSIDE.
[2019-02-14 20:55] VITALS: BP 132/51
--- NOTE | 2019-02-14 21:31 | NUR ---
PT C/O NAUSEA. ZOFRAN GIVEN.
--- NOTE | 2019-02-14 22:54 | NUR ---
ATIVAN GIVEN FOR ANXIETY/AGITATION.
--- NOTE | 2019-02-15 01:26 | NUR ---
PT C/O HEADACHE AND BACKACHE 03/25. TYLENOL GIVEN.
--- NOTE | 2019-02-15 02:10 | NUR ---
PT RESTING WITH EYEES CLOSED. NO SOB ON ROOM AIR. BREATHING EVEN AND UNLABORED. NO FACIAL GRIMACING. NO DISTRESS NOTED. CALL LIGHT WITHIN REACH. WILL CONTINUE TO MONITOR.
[2019-02-15 05:58] VITALS: BP 132/59
--- NOTE | 2019-02-15 06:51 | NUR ---
PT SLEPT IN INTERVALS THROUGHOUT SHIFT. NO SOB ON ROOM AIR. BREATHING EVEN AND UNLABORED. NO ACUTE/SIGNIFICANT CHANGES. PT FREQUENTLY GETS UP TO GO TO THE BATHROOM WITH THE USE OF WALKER TO VOID. PT EASILY GETS IRRITATED/AGITATED. PT RAISES VOICE OR YELLS "HELP". REMINDED PT HOW TO USE THE CALL LIGHT FOR ASSISTANCE. STAFF ANSWERS QUESTIONS IN A CALM MANNER. SAFETY MEASURES MAINTAINED. ALL NEEDS ATTENDED TO. CALL LIGHT WITHIN REACH. WALKER AT BEDSIDE. WILL ENDORSE CONTINUITY OF CARE TO ONCOMING RN.
--- NOTE | 2019-02-15 07:05 | NUR ---
RECEIVED PT FROM NIGHT NURSE. PT IS RESTING IN BED WITH EYES CLOSE AND HOB UP. RESPIRATIONS EVEN AND UNLABORED ON ROOM AIR. IV SITE LOOKS TO BE PATENT WITH NO SIGNS OF ERYTHEMA OR SWELLING. BED IN LOWEST POSITION. CALL LIGHT WITHIN REACH. WALKER AT BEDSIDE. WILL CONTINUE TO MONITOR.
[2019-02-15 09:47] VITALS: BP 167/68
--- NOTE | 2019-02-15 10:49 | NUR ---
PT IS RESTING IN BED WITH EYES CLOSED. PT LOOKS TO BE IN NO ACUTE DISTRESS AT THIS TIME. WILL CONITINUE TO MONITOR FOR PAIN. CALL LIGHT WITHIN REACH.
--- NOTE | 2019-02-15 11:45 | NUR ---
PT IS SITTING IN BED STATING THAT SHE NEEDS TO USE THE RESTROOM. ASSISTED PT TO THE RESTROOM, IMMEDIATELY AFTER RETURNING TO BED, PT STATED NEEDS TO USE RESTROOM AGAIN, PT URINATED 4 SEPARATE TIMES WITHIN A 10 MINUTE PEROID, EACH TIME URNIATING ABOUT 75 ML.
--- NOTE | 2019-02-15 16:17 | NUR ---
PHYSICAL THERAPY DAILY NOTES CO-SIGN All documentation done by the Research Scientist for 02/15/19 has been reviewed. I agree with the documentation. Reviewed/Co-Signed by: Hawa Leyva PT Documentation Done by:ASHLEY HALL [facility]
--- NOTE | 2019-02-15 16:28 | NUR ---
PHYSICAL THERAPY NOTE PATIENT DEMO BASELINE FUNCTIONAL MOBILITY, NO FURTHER SKILLED SESSION INDICATED. END TO NSG FOR MOB NEEDS
--- NOTE | 2019-02-15 16:55 | NUR ---
PT LAYING DOWN IN BED ASKING TO USE RESTROOM. ASSISTED PT TO RESTROOM USING WALKER AND AGAIN PT WAS EXPERIENCING URINARY FREQUENCY AND URINATED 3 DIFFERENT TIMES IN A 5 MINUTE PERIOD. PT MADE COMFORTABLE IN BED. PT TOLD TO USE CALL LIGHT IF NEEDING ASSISTANCE. PT VERBALIZED UNDERSTANDING. BED IN LOWEST POSITION. WILL CONTINUE TO MONITOR.
[2019-02-15 17:11] VITALS: BP 149/56; BP 152/65
--- NOTE | 2019-02-15 18:07 | NUR ---
PT IS SITTING AT THE SIDE OF THE BED EATING. PT LOOKS TO BE IN NO ACUTE DISTRESS AT THIS TIME. IV SITE PATENT WITH NO SIGNS OF ERYTHEMA OR SWELLING. SCATTERED ECCHYMOSIS TO BUE AND +2 PITTING EDEMA TO BLE. RESPIRATIONS EVEN AND UNLABORED ON ROOM AIR. BED IN LOWEST POSITION. CALL LIGHT WITHIN REACH. WALKER AT BEDSIDE. WILL ENDORSE TO ONCOMING SHIFT.
--- NOTE | 2019-02-15 19:37 | NUR ---
PT RECIEVED AWAKE ALERT AND REG RESP NO SOB,HL TO THE RT WRIST WITH THE SITE PATENT AND INTACT,PT ABULATORY TO THE BATHROOM WITH THE WALKER.KEPT CLEAN AND DRY TO TOUCH,V/S STABLE,CALL LIGHT EASY REACHED AND MADE COMFORTABLE IN BED, WILL CONTINUE TO MONITOR.
--- NOTE | 2019-02-15 20:19 | NUR ---
PT SITTING UP ON THE BED HAVING SNACK,WILL CONTINUE TO MONITOR.
[2019-02-15 21:17] VITALS: BP 134/43
[2019-02-16 05:50] VITALS: BP 157/77
--- NOTE | 2019-02-16 06:49 | NUR ---
PT DID NOT SLEEP KEEP GETTING OOB AND AMBULATING IN THE HALLWAY PATIENT ANXIOUS AND KEEP USING THE BATHRROM MORE OFTEN SOMETIMES SHE DOES NOT EVEN VOID,PT SLEEPING NOW AND WILL CONTINUE TO MONITOR.
--- NOTE | 2019-02-16 07:24 | NUR ---
SEEN ASLEEP ON BEDSIDE REPORT. RR-18 NO APPARENT DISTRESS. HEPLOCK RIGHT WRIST INTACT.CALL LIGHT WITHIN REACH. BED LOW AND LOCKED.
[2019-02-16 09:10] VITALS: BP 127/40
--- NOTE | 2019-02-16 10:56 | NUR ---
ASSISTED TO BATHROOM WITH WALKER. GAIT SLOW AND SOMEWHAT UNSTEADY. BACK TO BED NOW. CALL COHEN WITHIN REACH. BED LOW AND LOCKED.
--- NOTE | 2019-02-16 11:20 | NUR ---
MONTSE SEEN DISLODGED AND ANTIBIOTIC IS DUE AT 1200. STATED " I DONT WANT TO GET A NEEDLE AGAIN. ILL JUST TAKE THE PILL AT THE FACILITY".
--- NOTE | 2019-02-16 11:50 | NUR ---
[facility] NOTIFIED BY ARIES GARCIA THAT PT REFUSING IV INSERTION. PER BETTY PIANO TEACHER, OKAY FOR PT NOT TO HAVE IV ACCESS. BETTY [facility] TELEPHONE ORDERED TO CHANGE LEVAQUIN IVP 500 MG Q 48 HRS TO LEVAQUIN 500 MG Q 48 HRS PO. ORDER ENTERED AND VERIFIED.
--- NOTE | 2019-02-16 12:33 | NUR ---
ASLEEP ON ROUNDS. RR 19. BED L0W AND LOCKED. CALL COHEN WITHIN REACH.
[2019-02-16 17:47] VITALS: BP 151/66
--- NOTE | 2019-02-16 18:54 | NUR ---
IN AND OUT OF BATHROOM WITH URGENCY TO VOID. ASSISTED PRN.
--- NOTE | 2019-02-16 19:19 | NUR ---
REPORT GIVEN TO JOSE MORALES. PATIENT SITTING UP IN CHAIR. CONTINUES TO COMPLAIN OF LEFT ARM DISCOMFORT AND WANTING TO VOID. TELECOMMUNICATIONS SALES REPRESENTATIVE BETTY CALLED AND MADE AWARE. JUST CONTINUE CURRENT MANAGEMENT AND MONITOR PATIENT. CALL LIGHT WITHIN REACH. BED LOW AND LOCKED.
--- NOTE | 2019-02-16 19:39 | NUR ---
RECEIVED PT FROM DAY SHIFT RN. PT AAOX3. DENIES HEADACHE OR DIZZINESS. BREATHING EVEN AND UNLABORED WITH NO SOB NOTED. NO IV ACCESS. DENIES CHEST PAIN AT THIS TIME. BLE EDEMA NOTED. BUE DISCOLORATION NOTED, RIGHT WRIST SKIN TEAR WITH DRESSING. PT AMBULATES WITH WALKER. PT SEEMS RESTLESS GETTING IN AND OUT OF BED. CALL BUTTON WITHIN REACH. WILL CONTINUE TO MONITOR.
--- NOTE | 2019-02-16 19:51 | NUR ---
PT AGITATED, COMBATIVE AND VERBALLY ABUSIVE TOWARDS STAFF. RESIDENT DECKHAND CLAM DREDGE PAIGED, AWAITING CALL BACK.
[2019-02-16 20:26] VITALS: BP 154/66
--- NOTE | 2019-02-16 22:15 | NUR ---
PT CONTINUES TO BE AGITATED AND COMBATIVE, DR SUERO MADE AWARE. AWAITING NEW ORDER.
--- NOTE | 2019-02-17 00:44 | NUR ---
ASSISTED TO BATHROOM, NO SIGNSO OF ACUTE DISTRESS NOTED. WILL CONTINUE TO MONITOR.
--- NOTE | 2019-02-17 01:51 | NUR ---
PT RESTING, BREATHING EVEN AND UNLABORED WITH NO SIGNS OF DISTRESS NOTED. WILL SAFETY PRECAUTIONS IN PLACE. WILL CONTINUE TO MONITOR.
--- NOTE | 2019-02-17 03:34 | NUR ---
PT RESTLESS AND AGITATED, MEDICATED PER EMAR. WILL CONTINUE TO MONITOR.
[2019-02-17 05:13] VITALS: BP 158/66
--- NOTE | 2019-02-17 05:40 | NUR ---
PT DID NOT SLEEP WELL LAST NIGHT. PT CONTINUE TO BE RESTLESS AND FORGETFUL. MEDICATED PER EMAR WITH MINIMAL RELIEF. PT AMBULATES TO THE BATHROOM WITH WALKER. BREATHING EVEN AND UNLABORED ON RA WITH NO SOB NOTED. PT CONTINUE TO REFUSED IV ACCESS. CALL BUTTON WITHIN REACH. SAFETY PRECAUTIONS IN PLACE. WILL CONTINUE TO MONITOR AND ENDORSE CARE TO DAY SHIFT RN.
--- NOTE | 2019-02-17 07:22 | NUR ---
PT UP GOING TO THE BATHROOM. NO SIGNS OF DISTRESS NOTED. ENDORSED CARE TO DAY SHIFT RN, ALL QUESTIONS ADDRESSED.
--- NOTE | 2019-02-17 07:28 | NUR ---
PT CONT TO GET OUT OF BED SCREAMING "SOMEBODY HELP ME!" ALSO CONT TO BE RUDE AND CURSE AT STAFF. PT REFUSES TO LISTEN TO ANYTHING I HAVE TO SAY. CONFUSED, MEDSURG, PULSES MODERATE AND EQUAL DENIS, EDEMA BLE, LUNG SOUNDS CTA, TOLERATING RA, BOWEL SOUNDS ACTIVE, VOIDING FREQUENTLY, AMBULATORY, BUE ECCHYMOSIS, SKIN TEAR R WRIST WITH DRESSING CDI, PT CONT TO REFUSE IV ACCESS, BOWLING ALLEY MECHANIC BETTY AWARE. ASSISTED PT TO BATHROOM AND BACK TO BED. PT EDUCATED TO USE CALL LIGHT TO CALL FOR HELP INSTEAD OF SCREAMING. NO INDICATION OF LEARNING. CALL LIGHT WIHTIN REACH.
[2019-02-17 08:02] VITALS: BP 150/60
--- NOTE | 2019-02-17 09:24 | NUR ---
PT RESTING IN BED WITH BOTH EYES CLOSED, APPEARS TO BE SLEEPING, NO RESPIRATORY DISTRESS NOTED, CALL LIGHT WITHIN REACH.
--- NOTE | 2019-02-17 11:13 | NUR ---
PT SITTING IN CHAIR AT BEDSIDE SCREAMING TO GO BACK TO BED, PT REFUSING TO MOVE ASKING STAFF TO LIFT HER UP TO BED. PT ASSISTED BACK TO BED BY THREE STAFF MEMBERS. PT CONT TO SCREAM AND TALK RUDELY TO STAFF MEMBERS. CALL LIGHT WITHIN REACH.
--- NOTE | 2019-02-17 11:40 | NUR ---
Initial Nutrition Assessment- Dx: back pain x 1 day PMHx: dementia, stage 4 CKD, HTN, depression PSHx: appendectomy, hernia repair Labs: (02/13) Na 137, K 4.3, Glu 103, BUN 62, Cr 2.8, H/H 8.4/25; no labs taken since 02/13/19 Meds: Ativan, Lactinex, Levaquin, Tylenol, Zofran, Zosyn Diet: Regular diet PO Intakes: (02/16) L: 50%, B: 0%; (02/15) D: 75%, L: 100%; (02/14) L: 100%; (02/13) D: 40%; L: 40%; overall avg 52% x 7 meals. Ht: 157.48cm/62 inches/5'2" Wt: 77.338 kg/170# BMI: 31.1 kg/m2, obesity class 1 IBW: 50kg/110 pounds %IBW: 154% AJDBW: 125 pounds/57 kg UBW: Unable to obtain Age: 78 Food Allergies: No Known Food Allergies Skin: Slava 19 Edema: BLE GI: Last BM 02/14/19, abd soft and round, active bowel sounds, denies abd pain/N/V. Pt admitted with dx: UTI, intractable back pain, lactic acidosis, CKD stage 4, hx of HTN, hypermagnesemia, hx of dementia and depression, dyslipidemia, hx migraine, macrocytic anemia, DVT prophylaxis. RDN unable to visit/interview Pt due to Pt's dementia and combative behavior. RDN spoke with RN. RN reports Pt had a good appetite and ate very well yesterday, Pt refused breakfast this morning, but RN and RDN will continue to encourage PO intakes. Pt is awaiting placement due to insurance issues. Problem with: N: no V: no D: no C: no Problems with: Chewing: no Swallowing: no Current appetite: good, fluctuates Recent wt changes: unable to obtain Vitamin/Supplement: unable to obtain Special Diet at Home: unable to obtain Physical activity: unable to obtain Education: unable to obtain Estimated Nutritional Needs Based on adjusted body weight of 57 kg. Energy: 5065-2457 kcal/d (25-30 kcal/kg for maintenance) Protein: 46-57 gm/d (0.8-1 gm/kg for maintenance) Fluid: 1647-6647 mL/d (1 mL/kcal) or per MD. Nutrition Diagnosis 1. Inadequate PO intakes related to varied PO intakes as evidenced by average intakes of 52%, Pt meeting < 75% estimated needs. Intervention/RDN Recommendation(s): 1. Continue on regular diet as tolerated. Monitor/Evaluate Goal: Intake via PO intakes to meet at least 75% of estimated needs with acceptable tolerance within 7 days. Monitor: PO intakes and/or nutrition support tolerance, Labs, GI function, Skin integrity, Weights. F/U in 7 days as low risk (02/24)
--- NOTE | 2019-02-17 11:40 | NUR ---
Intervention/RDN Recommendation(s): 1. Continue on regular diet as tolerated.
--- NOTE | 2019-02-17 12:07 | NUR ---
PT CONT TO SCREAM AND CURSE AT STAFF, CONT TO COMPLAIN OF PAIN, ULTRAM PO GIVEN, CALL LIGHT WITHIN REACH.
[2019-02-17 12:22] VITALS: BP 133/64
--- NOTE | 2019-02-17 15:04 | NUR ---
PT RESTING IN BED, CONT TO SCREAM AND CURSE AT STAFF, NO RESPRIATORY DSITRESS NOTED, CALL LIGHT WITHIN REACH.
--- NOTE | 2019-02-17 16:41 | NUR ---
YARD DRIVER ASSISTED PT TO BATHROOM AND BACK TO BED, PT CONT SCREAM AND CURSE AT STAFF, NO RESPRIATORY DSITRESS NOTED, CALL LIGHT WITHIN REACH.
[2019-02-17 16:54] VITALS: BP 156/62
--- NOTE | 2019-02-17 17:16 | NUR ---
PT RESTING IN BED, NO RESPIRATORY DSITRESS NOTED, COMPLAINING OF PAIN, TYLENOL PO GIVEN, CALL LIGHT WITHIN REACH.
--- NOTE | 2019-02-17 19:50 | NUR ---
RECEIVED PT LAYING IN BED, NO ACUTE DISTRESS OBSERVED, DENIES PAIN OR DISCOMFORT. AA/OX3, ABLE TO MAKE NEEDS KNOWN, PT IS CONFUSED AND FORGETFUL WITH HX OF DEMENTIA. PT IS EASILY AGITATED, COMBATIVE, VERBALLY ABUSIVE, AND RESISTIVE TO CARE. MED-SURG, NO TELE, NO CP. +1 EDEMA TO BLE. BREATHING ON RA, EVEN AND UNLABORED, NO SOB OR DYSPNEA OBSERVED. ABD ROUND AND SOFT, NO N/V/D. FREELY VOIDS URINE WITH BRP, WALKER AT BEDSIDE AND WITHIN REACH. ABLE TO TURN AND REPOSITION SELF IN BED. SCATTERED ECCHYMOSIS TO BUE, SKIN TEAR TO RW WITH CLEAR DRESSING IN PLACE, CDI. NO IV ACCESS, PT REFUSES, MD AWARE, REFUSAL IN CHART. COMFORT AND SAFETY MEASURES IN PLACE. ALL NEEDS ASSESSED AND ATTENDED TO. CALL LIGHT WITHIN REACH. WILL CONTINUE TO MONITOR
[2019-02-17 20:32] VITALS: BP 131/77
[2019-02-18 05:39] VITALS: BP 147/51
--- NOTE | 2019-02-18 06:21 | NUR ---
NO SIGNIFICANT CHANGES TO REPORT, PT COMPLIED WITH NURSING CARE THROUGHOUT THE SHIFT WITH NO ACUTE EVENTS OVERNIGHT. NO ACUTE DISTRESS NOTED AT THIS TIME, PT LAYING IN BED, BREATHING EVEN AND UNLABORED, AROUSABLE TO VERBAL STIMULI. COMFORT AND SAFETY MEASURES MAINTAINED. ALL NEEDS ASSESSED AND ATTENDED TO. CALL LIGHT WITHIN REACH. WILL CONTINUE TO MONITOR AND ENDORSE CARE TO DAY SHIFT NURSE
--- NOTE | 2019-02-18 07:40 | NUR ---
PATIENT SLEEPING IN BED, AROUSABLE. PATIENT A/OX2 (PERSON/PLACE), PERIODS OF FORGETFULNESS AND CONFUSION. EDEMA NOTED TO BLE. NO SOB NOTED, PATIENT ON ROOM AIR. GENERALIZED WEAKNESS NOTED. NO IV NOTED, PATIENT REFUSED. PATIENT IS EASILY ANGERED. CALL LIGHT WITHIN REACH, BED IN LOW POSITION, WILL CONTINUE TO MONITOR.
[2019-02-18 08:59] VITALS: BP 166/56
--- NOTE | 2019-02-18 14:50 | NUR ---
REPORT GIVEN TO JASSON RAMAN AT [facility]. PATIENT AMBULATED TO THE BR WITH ASSISTANCE, STEADY SLOW GAIT NOTED. CALL LIGHT WITHIN REACH, BED IN LOW POSITION, WILL CONTINUE TO MONITOR FOR CHANGES.
[2019-02-18 15:38] VITALS: BP 148/63
[2019-02-18 17:23] VITALS: BP 148/63
--- NOTE | 2019-02-18 18:15 | NUR ---
PATIENT WAS D/C TO [facility], PATIENT WAS TAKEN DOWN VIA WHEELCHAIR BY OUTPATIENT PHYSICAL THERAPIST. [facility] PATIENT AND DAUGHTER RECEIVED COPY OF D/C INSTRUCTIONS.PATIENT AND DAUGHTER UNDERSTAND AND AGREE WITH D/C PLAN AND INSTRUCTIONS, INCLUDING MEDS AND F/U CARE. PATIENT TOOK HOME ALL PERSONAL BELONGINGS. ALL QUESTIONS AND CONCERNS ADDRESSED. ARMBANDS REMOVED. PATIENT HAD NO IV ACCESS.
== END 2019-02-18 18:25 | DRG 871 ==
LOC: ED 17:46 → DU 19:53 → MU 19:53 → DU 21:09 → MU 02-11 22:30 → DU 02-16 20:36 → MU 02-16 20:41
PROVIDERS: Emergency Medicine; ADMIT Internal Medicine
DX: A41.51 Sepsis due to Escherichia coli [E. coli] (principal); N17.0 Acute kidney failure with tubular necrosis; N18.4 Chronic kidney disease, stage 4 (severe); N39.0 Urinary tract infection, site not specified; E87.2 Acidosis; K21.9 Gastro-esophageal reflux disease without esophagitis; I12.9 Hypertensive chronic kidney disease with stage 1 through stage 4 chronic kidney disease, or unspecified chronic kidney disease; F32.9 Major depressive disorder, single episode, unspecified; M54.9 Dorsalgia, unspecified; G43.909 Migraine, unspecified, not intractable, without status migrainosus; E83.41 Hypermagnesemia; E78.5 Hyperlipidemia, unspecified; F03.90 Unspecified dementia, unspecified severity, without behavioral disturbance, psychotic disturbance, mood disturbance, and anxiety; B96.29 Other Escherichia coli [E. coli] as the cause of diseases classified elsewhere; Z98.84 Bariatric surgery status; Z22.322 Carrier or suspected carrier of Methicillin resistant Staphylococcus aureus
CPT/HCPCS: 84439; 97116-GP; 97530-GP; J1630; J1885; J1956; J2060; J2270; J2405; J7030; Q0092; Q0162

== ENCOUNTER 2019-04-26 18:33 | Inpatient (IN) | payer OTHER ==
[~2019-04-26] VITALS: Ht 157.5 cm; Wt 70.0 kg
[~2019-04-26 18:33] MED LIST changes: +FLO4 PO; +LEVAQUIN750 MG PO
--- NOTE | 2019-04-26 19:00 | NUR ---
PATIENT KIM [facility] FOR C/O DIARHEA SINCE AM PER MEDIC. PER PATIENT, SHE STS SHE HAS DIARHEA FOR 3 DAYS. STS NOT HAVING ANY ABDOMINAL PAIN AT THE MOMENT. STS THAT WHEN SHE URINATES, THERE IS BURNING PAIN. STS HAVING BURNING PAIN WELL WHEN SHE HAS A BM. CONTINUES TO SAY, "I NEED TO PEE". RASH NOTED UNDER LEFT BREAST WITH FISHY SMELL NOTED. AWAITING MSE
--- NOTE | 2019-04-26 19:11 | NUR ---
MD GREWAL AT BEDSIDE FOR MSE.
--- NOTE | 2019-04-26 19:22 | NUR ---
REPORT OFF TO JOSE MICHEL
[2019-04-26 20:27] LABS: microscopic required? YES; urine erythrocyte TRACE (NEGATIVE)
[2019-04-26 20:31] LABS: PLATELET COUNT 241 x10^3mcL (130-400)
[2019-04-26 20:32] LABS: RED CELL DISTRIBUTION WIDTH 15.7 % (11.5-14.5)
[2019-04-26 20:35] LABS: AMPHETAMINE QUAL UR NONE DETECTED (See below)
[2019-04-26 20:40] LABS: CALCIUM 8.7 mg/dL (8.5-10.1); CARBON DIOXIDE 29.7 mmol/L (21-32); CHLORIDE SERUM 98 mmol/L (98-107); CREATININE SERUM 2.3 mg/dL (0.6-1.0); GLUCOSE SERUM 128 mg/dL (74-106); SODIUM SERUM 138 mmol/L (136-145)
[2019-04-26 20:47] LABS: BAND NEUTROPHIL 4 % (0-10); BASOPHIL 0 % (0-2); MONOCYTE 1 % (0-7); SEGMENTED NEUTROPHILS 90 % (37-75)
[2019-04-26 20:48] LABS: PLATELET MORPHOLOGY PLATELETS NORMAL; rbc morphology (normal/abnorm) NORMAL (NORMAL)
[2019-04-26 20:52] LABS: ALBUMIN 3.3 g/dL (3.4-5.0); ALKALINE PHOSPHATASE 211 U/L (46-116); ALT/SGPT 14 U/L (14-59); AST/SGOT 14 U/L (15-37); BILIRUBIN TOTAL 0.49 mg/dL (0.20-1.00); CHOLESTEROL 211 mg/dL (<200); HDL CHOLESTEROL 69 mg/dL (40-60); LIPASE 100 IU/L (73-393); MAGNESIUM 1.8 mg/dL (1.8-2.4); T4(THYROXINE) 5.3 ug/dL (4.7-13.3); TOTAL PROTEIN, SERUM 6.5 g/dL (6.4-8.2)
--- NOTE | 2019-04-26 21:01 | NUR ---
ASSISTED PATIENT ON BED SIDE COMMODE- C/O DIARRHEA. CHANGED LINENS-
--- NOTE | 2019-04-26 22:30 | NUR ---
PROVIDED PHONE TO PATIENT TO CALL DAUGHTER REGARDING ADMIT
[2019-04-26] MEDS ORDERED: ZYRTEC10 MG PO (22:35)
[2019-04-26] MEDS ORDERED: LISINOPRIL20 MG PO (22:36)
[2019-04-26] MEDS ORDERED: CITALOPRAM HYDR20 M1 PO (22:37)
[2019-04-26] MEDS ORDERED: AMLODIPINE BESY10 M2 PO (22:38)
[2019-04-26] MEDS ORDERED: MELATONIN3 MG PO (22:38)
[2019-04-26] MEDS ORDERED: LANSOPRAZOLE30 M2 PO (22:39)
[2019-04-26] MEDS ORDERED: FLONS (22:40)
[2019-04-26] MEDS ORDERED: HYDRALAZINE HCL25 MG PO (22:40)
[2019-04-26] MEDS ORDERED: FERROUS SULFAT325 M2 PO (22:40)
[2019-04-26] MEDS ORDERED: MIRALAX17 GM/Dose (22:41)
[2019-04-26] MEDS ORDERED: IMITREX50 MG PO (22:41)
--- NOTE | 2019-04-26 23:00 | NUR ---
SUBMITTED STOOL SAMPLE TO LAB PER MD ORDERS
[2019-04-26 23:09] LABS: PHOSPHOROUS 3.7 mg/dL (2.5-4.9)
--- NOTE | 2019-04-26 23:21 | NUR ---
REPORT GIVEN TO JOSE CASAS FOR CONTINUED CARE OF PATIENT.
[2019-04-26 23:51] VITALS: BP 129/78
--- NOTE | 2019-04-26 23:55 | NUR ---
RECEIVED PT FROM ED VIA MACARIO. ORIENTED PT TO ROOM AND SURROUNDINGS. IV NOTED TO RFA PATENT AND INTACT. TELE 14 PLACED ON PT READING AFIB. INSTRUCTED PT ON THE USE OF CALL LIGHT FOR ASSISTANCE. ENDORSED PT TO PRIMARY NURSE CHET
--- NOTE | 2019-04-27 01:33 | NUR ---
PT ASSISTED TO BATHROOM, GAIT SLOW BUT STEADY, PROVIDED WALKER AT BEDSIDE. PER PT, HER WALKER IS STILL AT [place]. PT HAD 1X LOOSE BROWN BM. PT ASSISTED BACK INTO BED. NO S/S ACUTE DISTRESS. WILL CONTINUE TO MONITOR.
--- NOTE | 2019-04-27 05:31 | NUR ---
IV TO RAC FOUND LEAKING, TOLD PT ABOUT NEED TO PLACE NEW IV, PT YELLS "NO! I DON'T NEED ANY MORE NEEDLES PRICKING ME". ENCOURAGED PT ABOUT NEED FOR IV FOR FLUIDS SINCE PT HAS BEEN HAVING A LOT OF DIARRHEA, PT STILL REFUSES.
[2019-04-27 05:52] VITALS: BP 123/50
[2019-04-27 08:03] VITALS: BP 148/61
[2019-04-27 08:56] LABS: BASOPHIL % 0.2 % (0-2); PLATELET COUNT 220 x10^3mcL (130-400)
[2019-04-27 08:57] LABS: RED CELL DISTRIBUTION WIDTH 15.2 % (11.5-14.5)
[2019-04-27 09:02] LABS: CALCIUM 8.1 mg/dL (8.5-10.1); CARBON DIOXIDE 26.7 mmol/L (21-32); CHLORIDE SERUM 103 mmol/L (98-107); CREATININE SERUM 2.1 mg/dL (0.6-1.0); GLUCOSE SERUM 107 mg/dL (74-106); SODIUM SERUM 141 mmol/L (136-145)
--- NOTE | 2019-04-27 09:21 | NUR ---
MD ROUNDS; DR. GOLDEN MADE AWARE OF THE POTASSIUM 3.0
--- NOTE | 2019-04-27 09:47 | NUR ---
IVF RESITED ON THE LT WRIST WITH ANGIO 22 X1 ATTEMPT; NSS AT 50 ML/HR RESTARTED.
[2019-04-27 09:49] LABS: MAGNESIUM 1.4 mg/dL (1.8-2.4)
--- NOTE | 2019-04-27 10:43 | NUR ---
RECD PT AAOX4; NO SOB AT RM AIR; DENIES PAIN THAT REQUIRE PAIN MED; ABD IS SOFT AND ROUND; BS+ ON 4 QUADRANTS; PT C/O DIARRHEA; DENIES N/V. ECCHYMOSIS ON BUE; REDNESS ON BOTH BREASTFOLDS L>R AND RT AXILLA; CIRCULAR, RAISED LESION ON THE RT AXILLA NOTED; PER PT, "CYST LIKE AND I SQUEEZE IT SOMETIMES". LINEAR OPENIN NOTED BUT DRY, NO ACTIVE DRAIN WHEN SQUEEZED, AND EVENTS INTERN. RAC IN INTACT BUT LEAKING ENDORSED BY NIGHT RN AND PT REFUSED IV REINSERTION AT THIS TIME. BEDSIDE COMMODE NEXT TO BED FOR PT'S USE; SAFETY PRECAUTION REINFORCED; BED IN THE LOWEST POSITION AND LOCKED; CALL LIGHT WITHIN REACH; WILL CONTINUE TO MONITOR STATUS.
[2019-04-27 12:15] VITALS: BP 140/65
--- NOTE | 2019-04-27 13:37 | NUR ---
TRANSFER TO [facility] PER MD ORDER. ORDERS ACKNOWLEDGED.
[2019-04-27 15:57] VITALS: BP 137/69
--- NOTE | 2019-04-27 16:12 | NUR ---
WOUND CARE ON LT BREAST FOLD; CLEANSE WITH NSS, APPLIED ANTIFUNGAL CREAM AND INTERDRY ORDERED; WOUND CARE ALSO DONE ON CLOSED WOUND ON RT AXILLA; CLEANSE WITH NSS AND PAT DRY; LEFT ROTARY FURNACE OPERATOR BEC WOUND IS CLOSED AND DRY.
--- NOTE | 2019-04-27 18:32 | NUR ---
PT TOOK A SIP OF THE LIQUID POTASSIUM THEN REFUSED; SHE DISLIJKE THE TASTE DESPITE MIXING WITH JUICE OR PUDDING. PHARMACY CALLED TO REPLACE WITH TAB.
--- NOTE | 2019-04-27 19:04 | NUR ---
PT STARTED ON REGULAR DIET FOR DINNER AND TOLERATED IT; NO N/V; IVF CHANGED TO SL; IVF DC'D. MG IS 1.4 AND MD MADE AWARE THROUGH [place]; PROFESSOR OF PSYCHIATRY ALSO AWARE; LOMOTIL PO ADMINISTERED; PT STILL HAS DIARRHEA; PT IS AMBULATORY WITH USE OF WALKER; GAIT IS BALANCE; PT IN BED AT THIS TIME; NOT IN ANY DISTRESS.
[2019-04-27 21:20] VITALS: BP 120/74
--- NOTE | 2019-04-27 22:44 | NUR ---
RECEIVED PT AT 1945 IN BED AAOX4 NO ACUTE DISTRESS NOTED , LUNG SOUNDS CTA , ABD SOFT BS HYPEACTIVE MULTIPLE LOOSE STOOL NOTE WITH FOUL SMELL , SKIN WAR TO TOUCH UNDER LEFT BREAST ERYTHEMA NOTED , INTER DRY-CLOTH IN PLACE , HL INTACT FLUSHING WELL . CALL LIGHT WITHIN PT'S REACH WILL CON'T TO MONITOR AND ASSIST PT WITH CARE .
--- NOTE | 2019-04-28 03:25 | NUR ---
PT'S IN BED WITH EYES CLOSED .
[2019-04-28 05:35] VITALS: BP 96/48
--- NOTE | 2019-04-28 06:31 | NUR ---
I HAVE REVIEWED THE DATA COLLECTION BY HVAC INSTALLATION TECHNICIAN (NAME):LEYDA RAMIRES ENTERED ON (DATE/TIME): I CONCUR WITH THE DATA AND ANY EXCEPTIONS OR COMMENTS ARE LISTED BELOW:
--- NOTE | 2019-04-28 06:33 | NUR ---
PT'S IN BED WITH EYES CLOSED , MAG-RIDER INFUSING AT THE MOMENT , BED ALARM ON FOR SAFTY ,MULTIPLE LOOSE STOOL (3) UNABLE TO COLLECT STOOL, LAB SELENA STATED WE ARE UNABLE TO RUN STOOL FOR CDIFF DUE TO STOOL BEEN OLD "WILL ENDORSE TO AM NURSE TO F/U WITH PT .
[2019-04-28 06:47] LABS: BASOPHIL % 0.8 % (0-2); PLATELET COUNT 203 x10^3mcL (130-400)
[2019-04-28 06:54] LABS: CALCIUM 8.1 mg/dL (8.5-10.1); CARBON DIOXIDE 22.3 mmol/L (21-32); CHLORIDE SERUM 105 mmol/L (98-107); CREATININE SERUM 2.2 mg/dL (0.6-1.0); GLUCOSE SERUM 95 mg/dL (74-106); MAGNESIUM 1.9 mg/dL (1.8-2.4); PHOSPHOROUS 3.8 mg/dL (2.5-4.9); POTASSIUM SERUM 3.4 mmol/L (3.5-5.1); SODIUM SERUM 140 mmol/L (136-145)
--- NOTE | 2019-04-28 07:27 | NUR ---
REPORT TAKEN FROM PULP OPERATOR, PT DID NOT WAKE FOR REPORT, RESTING AT THIS TIME, CHEST RISE AND FALL OBSERVED. HEP LOCKED AT THIS TIME, BED ALARM ON, WILL CONTINUE TO MONITOR.
[2019-04-28 07:39] LABS: RED CELL DISTRIBUTION WIDTH 15.7 % (11.5-14.5)
[2019-04-28 07:42] VITALS: BP 137/68
--- NOTE | 2019-04-28 09:10 | NUR ---
PT MOVED TO BEDSIDE CHAIR AFTER USING THE RESTROOM. BEDSIDE COMODE PLACED NEXT TO CHAIR TO ENCOURAGE PT TO USE IN ORDER TO COLLECT STOOL SAMPLE. PT REPORT THAT SHE WILL CALL WHEN SHE NEEDS TO USE TO RESTROOM SO NURSING STAFF CAN ASSIST HER TO THE BEDSIDE COMMODE PT
--- NOTE | 2019-04-28 11:07 | NUR ---
PT STILL WITH DIARRHEA, AND IS REPORTS ABD PAIN AND DIZZINESS. PT MEDICATED FOR PAIN AND ENCOURAGED TO HYDRATE. WILL CONTINUE TO MONITOR.
[2019-04-28 11:45] VITALS: BP 140/67
[2019-04-28 15:51] VITALS: BP 126/68
--- NOTE | 2019-04-28 19:30 | NUR ---
PT IS A/O X3, FORGETFUL AT TIMES. AGITAITED IN AND OUT. MED SURG. DENIES ANY CHEST PAIN OR PRESSURE. PULSES ARE PRESENT. NO EDEMA NOTED. LUNGS CLEAR IN ALL FEILDS. ON RA, DENIES ANY SOB. EQUAL CHEST RISE AND FALL. NO SIGN OF RESP DISTRESS. BOWEL SOUNDS PRESENT x4. ERYTHEMIC SKIN NOTED UNDER L BREST FOLD, AREA WAS CLEANSED, PAT DRIED, AND INTRA DRY PLACED. PT DENIES ANY PAIN AT THIS TIME. RESOURCE NURSE AT BEDSIDE TO INSERT NEW IV. PT COMPLAIN OF IV ON LW CAUSED PAIN. BED IS AT LOWEST SETTING. CALL LIGHT WITHIN REACH. WILL CONTINUE TO MONTIOR.
[2019-04-28 19:31] VITALS: BP 95/62
--- NOTE | 2019-04-28 19:45 | NUR ---
IV WAS PLACED ON LFA, INTACT AND PATENT. PT TOLERATED WILL.
--- NOTE | 2019-04-29 01:25 | NUR ---
PT IS SITTING UP IN A CHAIR. PT DOSEN'T WANT TO SLEEP TONIGHT PER PT. PT STILL HAS LOOSE/WATERY BMS. REFUSES TO HAVE FLUIDS. NO OTHER COMPLAINTS. CALL LIGHT WITHIN REACH. WILL CONTINUE TO MONTIOR.
[2019-04-29 05:29] VITALS: BP 111/51
--- NOTE | 2019-04-29 06:28 | NUR ---
PT RESTING IN BED WITH BOTH EYES CLOSED. NO SIGN OF DISTRESS NOTED. PT WAS IRRITATED DURING THE NIGHT AND YELLING AT TIMES. MOSTLY OUT OF BED ON THE BEDSIDE CAMMODE OR THE CHAIR. PT AMBULATED ONCED DOWN THE RAINES AND TOLERATED WELL. PT AMBULATED FREELY TO THE BATHROOM WITH A STEADY GAIT. BED AT LOWEST SETTING. CALL LIGHT WITHIN REACH. BED ALARM IS ON. WILL ENDORSE TO AM NURSE.
[2019-04-29 07:06] LABS: BASOPHIL % 0.4 % (0-2); PLATELET COUNT 213 x10^3mcL (130-400)
[2019-04-29 07:12] LABS: RED CELL DISTRIBUTION WIDTH 15.9 % (11.5-14.5)
[2019-04-29 07:22] LABS: CALCIUM 8.4 mg/dL (8.5-10.1); CARBON DIOXIDE 18.2 mmol/L (21-32); CHLORIDE SERUM 103 mmol/L (98-107); CREATININE SERUM 2.7 mg/dL (0.6-1.0); GLUCOSE SERUM 107 mg/dL (74-106); MAGNESIUM 2.4 mg/dL (1.8-2.4); PHOSPHOROUS 3.9 mg/dL (2.5-4.9); SODIUM SERUM 137 mmol/L (136-145)
[2019-04-29 08:43] VITALS: BP 110/46
--- NOTE | 2019-04-29 09:29 | NUR ---
AAO TIMES 4. MED SURG PATIENT. LUNGS CTA. NO SOB. O2 SAT ON RA 95%. BS'S ACTIVE TIMES 4. WILKERSON, BSC ASSIST, AMBULATES WITHOUT DIFFICULTY. CALLS TO GET HELP WITH BSC. PERIPHERAL PULSES PALPABLE. 2+ EDEMA BLE. IV SITE CDI. COOPERATIVE.
--- NOTE | 2019-04-29 14:40 | NUR ---
BLAINE LAKHANI SQL SERVER ARCHITECT IS AWARE THAT HER STOOL CULTURE CAME BACK POSITIVE FOR SALMONELLA SPECIES. SHE SAID SHE WILL ORDER DR ISAAC CONSULTATION FOR HER. SHE HAS FREQUENT LOOSE FOUL SMELLING STOOLS.
--- NOTE | 2019-04-29 17:42 | NUR ---
AAO TIMES 3, FORGETFUL. MED SURG PATIENT. UNIVERSAL PRECAUTIONS. STOOL IS FOUL SMELLING, SHE HAS FREQUENT LOOSE STOOLS. SHE IS USING THE BSC AND SOMETIMES SHE AMBULATES TO BRP, SLOW AND STEADY. IV SITE CDI. SOMETIMES SHE GETS EASILY ANGERED, AND SHE HAS CALLED MYSELF AND THE LABORATORY ANIMAL FACILITY SUPERVISOR "WORTHLESS", THEN OTHER TIMES SHE ISNT MEAN, IT CHANGES PERIODOICALLY.
[2019-04-29 18:10] VITALS: BP 119/57
--- NOTE | 2019-04-29 20:00 | NUR ---
SHIFT REASSESSMENT DONE.PATIENT ALERT AND ORIENTED X3,FORGETFUL.BREATHING EASY.GEN WEAKNESS,USES BSC WHEN NEEDED.NS AT 70 CC/HOUR.R WRIST,NEW IV SITE.MEDSURG PATIENT.SALMONELLA POSITIVE STOOL.C DIFF NEGATIVE.REDNESS BREAST FOLD AND BUTT.2 PLUS BLE.CALL LIGHT IN REACH.
[2019-04-29 20:20] VITALS: BP 125/50
--- NOTE | 2019-04-29 21:00 | NUR ---
PATIENT CALLS MOST OF THE TIME,CANNOT PLEASE HER,COMPLAINED THAT NOBODY IS ATTENDING HER.
--- NOTE | 2019-04-29 22:00 | NUR ---
PATIENT BEING ASSISTED BY PRODUCE BUYER BSC.IVF INFUSING R WRIST,REMINDED TO BE CAREFUL WITH IT,IT'S A NEW IV SITE FROM DAY SHIFT.MEDSURG PATIENT.PATIENT IS POSITIVE,SALMONELLA STOOL.CAN BE MEAN.
--- NOTE | 2019-04-30 01:34 | NUR ---
PATIENT AWAKE,LOTS OF REQUEST.NEEDS ANTICIPATED.WANTED DIET COKE,BUT TOLD HER WE DO NOT CARRY COKE.GIVEN ZERO SPRITE.
--- NOTE | 2019-04-30 02:30 | NUR ---
UP IN HALLWAY,REMINDED THAT SHE STAYS IN HER ROOM,CONTACT ISOLATION.JUST WON'T LISTEN.
--- NOTE | 2019-04-30 03:10 | NUR ---
RESTING IN ROOM NOW.DOOR IS CLOSE WHAT SHE WANTED.
[2019-04-30 05:42] VITALS: BP 115/50
--- NOTE | 2019-04-30 05:53 | NUR ---
PATIENT I AND O,IVF INFUSING.WILL ENDORSE TO NEXT SHIFT.REMAINS ON CONTACT ISOLATION,SALMONELLA STOOL.
[2019-04-30 06:39] LABS: BASOPHIL % 0.4 % (0-2); PLATELET COUNT 207 x10^3mcL (130-400)
[2019-04-30 06:46] LABS: CALCIUM 7.9 mg/dL (8.5-10.1); CARBON DIOXIDE 18.7 mmol/L (21-32); CHLORIDE SERUM 105 mmol/L (98-107); CREATININE SERUM 2.2 mg/dL (0.6-1.0); GLUCOSE SERUM 114 mg/dL (74-106); MAGNESIUM 2.2 mg/dL (1.8-2.4); POTASSIUM SERUM 3.5 mmol/L (3.5-5.1); SODIUM SERUM 137 mmol/L (136-145)
[2019-04-30 06:49] LABS: RED CELL DISTRIBUTION WIDTH 16.3 % (11.5-14.5)
--- NOTE | 2019-04-30 09:31 | NUR ---
AAO TIMES 4. MED SURG. CONTACT ISOLATION FOR SALMONELLA STOOL. LUNGS CTA. NO SOB. O2 SAT ON RA 97%. BS'S HYPERACTIVE. BSC ASSIST SOMETIMES, OR BRP ASSIST. IV SITE CDI. NO C/O PAIN. COOPERATIVE AT THIS MOMENT. 2+ EDEMA BLE.
[2019-04-30 09:34] VITALS: Ht 157.5 cm; Wt 70.0 kg
[2019-04-30 09:46] VITALS: BP 134/43
--- NOTE | 2019-04-30 10:56 | NUR ---
WOUND CARE EVALUATION NOTE: SKIN ASSESSMENT DONE TO THIS 78 Y/F, NO OPEN ACTIVE WOUND, INTERTRIGO TO RIGHT AXILLARY, LEFT UNDER BREAST AND R/L GROINS RESPONDING TO CURRENT TREATMENT. R/L INNER BUTTOCKS DRY AND CLEAN SKIN INTACT. R/L UPPER ARM MULTIPLE ECHYMOSIS, SKIN INTACT. POC DISCUSSED WITH PT. AND PT. VERBALIZES UNDERSTANDING.
[2019-04-30] MEDS ORDERED: CIP250 PO (16:58)
[2019-04-30 17:02] VITALS: BP 134/43
[2019-04-30 17:32] VITALS: BP 127/66
--- NOTE | 2019-04-30 17:55 | NUR ---
GAVE REPORT TO [facility] JASSON CAN AT [phone]. I CALLED PATIENT'S DAUGHTER KENNEY AT [phone] AT [phone], SHE DIDNT ANSWER, I LEFT A VOICE MAIL FOR HER TO CALL ME BACK. I CALLED AGAIN AT [phone].
--- NOTE | 2019-04-30 18:40 | NUR ---
DAUGHTER KENNEY CALLED BACK AND SHE IS ON HER WAY HERE FROM WORK. PATIENT IS AAO TO SELF AND PLACE, FORGETFUL. I REMOVED THE IV SL, ANGIO INTACT. SHE IS DRESSED AND READY FOR HER DAUGHTER, I NEED THE DAUGHTER TO SIGN FOR HER MOTHER THOUGH. NO C/O PAIN. NO SOB. FAIR APPETITE. VS'S STABLE.
--- NOTE | 2019-04-30 19:08 | NUR ---
GAVE DAUGHTER DISCHARGE INSTRUCTIONS/ PRESCRIPTION. SL DC'D ANGIO INTACT. DTR VERBALIZED "I UNDERSTAND" TO ALL INSTRUCTIONS. KENNEY HOPSON IS TAKING HER MOM TO [facility] FROM HERE.
== END 2019-04-30 19:10 | disposition home or self-care (01) | DRG 371 ==
LOC: ED 18:33 → MU 22:30 → DU 22:30 → MU 04-27 12:51
PROVIDERS: Emergency Medicine; ADMIT Internal Medicine
DX: A02.0 Salmonella enteritis (principal); N17.0 Acute kidney failure with tubular necrosis; N18.4 Chronic kidney disease, stage 4 (severe); E44.1 Mild protein-calorie malnutrition; E86.0 Dehydration; I12.9 Hypertensive chronic kidney disease with stage 1 through stage 4 chronic kidney disease, or unspecified chronic kidney disease; L30.9 Dermatitis, unspecified; F03.90 Unspecified dementia, unspecified severity, without behavioral disturbance, psychotic disturbance, mood disturbance, and anxiety; K21.9 Gastro-esophageal reflux disease without esophagitis; K43.9 Ventral hernia without obstruction or gangrene; N28.1 Cyst of kidney, acquired; M41.9 Scoliosis, unspecified; E78.00 Pure hypercholesterolemia, unspecified; F32.9 Major depressive disorder, single episode, unspecified; Z68.26 Body mass index [BMI] 26.0-26.9, adult; Z98.84 Bariatric surgery status; Z90.49 Acquired absence of other specified parts of digestive tract; Z90.710 Acquired absence of both cervix and uterus; Z66 Do not resuscitate
CPT/HCPCS: 82962; 83880; 87046; 87046-59; 97116-GP; 97530-GP; G0378; G0480; J2405; J3475; J3480; J3490; J7030; Q0092

== ENCOUNTER 2019-06-24 21:11 | Emergency (ER) | payer OTHER ==
[~2019-06-24] VITALS: Ht 157.5 cm; Wt 74.8 kg
[~2019-06-24 21:11] MED LIST changes: +AMLODIPINE BESY10 M2 PO; +CIP250 PO; +FLONS; +LISINOPRIL20 MG PO; +MELATONIN3 MG PO; +MIRALAX17 GM/Dose; +ZYRTEC10 MG PO
[2019-06-24 21:46] VITALS: Ht 157.5 cm; Wt 74.8 kg
[2019-06-24 23:02] LABS: BASOPHIL % 1.1 % (0-2); PLATELET COUNT 311 x10^3mcL (130-400)
[2019-06-24 23:06] LABS: CALCIUM 7.3 mg/dL (8.5-10.1); CARBON DIOXIDE 27.2 mmol/L (21-32); CHLORIDE SERUM 101 mmol/L (98-107); CREATININE SERUM 2.4 mg/dL (0.6-1.0); GLUCOSE SERUM 93 mg/dL (74-106); POTASSIUM SERUM 3.5 mmol/L (3.5-5.1); SODIUM SERUM 140 mmol/L (136-145)
[2019-06-24 23:11] LABS: ALKALINE PHOSPHATASE 218 U/L (46-116); ALT/SGPT 13 U/L (14-59); AST/SGOT 11 U/L (15-37); BILIRUBIN TOTAL 0.21 mg/dL (0.20-1.00); TOTAL PROTEIN, SERUM 6.9 g/dL (6.4-8.2)
[2019-06-24 23:12] LABS: ALBUMIN 3.2 g/dL (3.4-5.0)
[2019-06-24 23:37] LABS: UA SPECIFIC GRAVITY <=1.005 (1.005-1.035); microscopic required? YES; urine erythrocyte TRACE (NEGATIVE)
[2019-06-25 08:45] VITALS: BP 134/61
== END 2019-06-25 08:45 | disposition home or self-care (01) ==
LOC: ED 21:11
PROVIDERS: Emergency Medicine
DX: S42.201A Unspecified fracture of upper end of right humerus, initial encounter for closed fracture (principal); M25.562 Pain in left knee; M25.561 Pain in right knee; I12.9 Hypertensive chronic kidney disease with stage 1 through stage 4 chronic kidney disease, or unspecified chronic kidney disease; N18.4 Chronic kidney disease, stage 4 (severe); G43.909 Migraine, unspecified, not intractable, without status migrainosus; K21.9 Gastro-esophageal reflux disease without esophagitis; F32.9 Major depressive disorder, single episode, unspecified; Z88.0 Allergy status to penicillin; Z90.49 Acquired absence of other specified parts of digestive tract; Z90.89 Acquired absence of other organs; Z86.2 Personal history of diseases of the blood and blood-forming organs and certain disorders involving the immune mechanism; W18.39XA Other fall on same level, initial encounter; Y93.89 Activity, other specified; Y92.89 Other specified places as the place of occurrence of the external cause; Y99.8 Other external cause status
CPT/HCPCS: 36415; J2060; J2270; Q0092

== ENCOUNTER → 2019-06-28 | Outpatient (CLI) | payer OTHER ==
[2019-06-28 16:48] LABS: BASOPHIL % 0.6 % (0-2); PLATELET COUNT 313 x10^3mcL (130-400)
[2019-06-28 16:56] LABS: RED CELL DISTRIBUTION WIDTH 20.6 % (11.5-14.5)
[2019-06-28 17:08] LABS: microscopic required? YES; urine erythrocyte TRACE (NEGATIVE)
[2019-06-28 17:09] LABS: ALKALINE PHOSPHATASE 229 U/L (46-116); ALT/SGPT 15 U/L (14-59); AST/SGOT 13 U/L (15-37); BILIRUBIN TOTAL 0.4 mg/dL (0.20-1.00); CALCIUM 7.4 mg/dL (8.5-10.1); CHLORIDE SERUM 102 mmol/L (98-107); CREATININE SERUM 2.1 mg/dL (0.6-1.0); GLUCOSE SERUM 68 mg/dL (74-106); MAGNESIUM 2.4 mg/dL (1.8-2.4); POTASSIUM SERUM 3.4 mmol/L (3.5-5.1); SODIUM SERUM 141 mmol/L (136-145); TOTAL PROTEIN, SERUM 7.1 g/dL (6.4-8.2)
[2019-06-28 17:10] LABS: ALBUMIN 3.2 g/dL (3.4-5.0)
[2019-06-28 17:20] LABS: rbc morphology (normal/abnorm) ABNORMAL (NORMAL)
== END | disposition home or self-care (01) ==
LOC: LB 16:09
DX: N18.3 Chronic kidney disease, stage 3 (moderate) (principal); N20.0 Calculus of kidney; G47.33 Obstructive sleep apnea (adult) (pediatric)

== ENCOUNTER 2019-07-05 08:29 | Emergency (ER) | payer OTHER ==
[~2019-07-05] VITALS: Ht 154.9 cm; Wt 70.3 kg
[2019-07-05 08:43] VITALS: Ht 154.9 cm; Wt 70.3 kg
[2019-07-05 13:40] VITALS: BP 113/77
== END 2019-07-05 13:48 | disposition home or self-care (01) ==
LOC: ED 08:29
DX: S13.4XXA Sprain of ligaments of cervical spine, initial encounter (principal); S00.03XA Contusion of scalp, initial encounter; I12.9 Hypertensive chronic kidney disease with stage 1 through stage 4 chronic kidney disease, or unspecified chronic kidney disease; N18.4 Chronic kidney disease, stage 4 (severe); G43.909 Migraine, unspecified, not intractable, without status migrainosus; K21.9 Gastro-esophageal reflux disease without esophagitis; F32.9 Major depressive disorder, single episode, unspecified; Z86.2 Personal history of diseases of the blood and blood-forming organs and certain disorders involving the immune mechanism; Z90.49 Acquired absence of other specified parts of digestive tract; Z90.89 Acquired absence of other organs; Z88.0 Allergy status to penicillin; W18.39XA Other fall on same level, initial encounter; Y93.89 Activity, other specified; Y92.89 Other specified places as the place of occurrence of the external cause; Y99.8 Other external cause status

== ENCOUNTER 2020-04-30 01:26 | Emergency (ER) | payer OTHER ==
[~2020-04-30] VITALS: Ht 157.5 cm; Wt 90.7 kg
[2020-04-30 01:28] VITALS: Ht 157.5 cm; Wt 90.7 kg
[2020-04-30 10:44] VITALS: BP 147/63
== END 2020-04-30 10:44 | disposition home or self-care (01) ==
LOC: ED 01:26
DX: S05.11XA Contusion of eyeball and orbital tissues, right eye, initial encounter (principal); I10 Essential (primary) hypertension; K21.9 Gastro-esophageal reflux disease without esophagitis; G43.909 Migraine, unspecified, not intractable, without status migrainosus; I12.9 Hypertensive chronic kidney disease with stage 1 through stage 4 chronic kidney disease, or unspecified chronic kidney disease; Z88.0 Allergy status to penicillin; N18.4 Chronic kidney disease, stage 4 (severe); Z98.890 Other specified postprocedural states; Z90.49 Acquired absence of other specified parts of digestive tract; Z90.89 Acquired absence of other organs; W18.30XA Fall on same level, unspecified, initial encounter; Y93.89 Activity, other specified; Y92.89 Other specified places as the place of occurrence of the external cause; Y99.8 Other external cause status
CPT/HCPCS: J2270; J7030; J7042; Q0092